=== PATIENT | female | born 1965 | race African-American/Black ===

== ENCOUNTER 2019-06-15 21:25 | Emergency (ER) | payer BC ==
--- OUTSIDE RECORDS SUMMARY | 2019-06-15 21:27 | XMS REPORT ---
:1965 [facility] Address [address] [place] [address] Dr. Rosales [address] [place] [address] Care Team Providers Name Role Phone Unavailable Unavailable Unavailable Problems This patient has no known problems. Allergies, Adverse Reactions, Alerts This patient has no known allergies or adverse reactions. Medications This patient has no known medications.
--- OUTSIDE RECORDS SUMMARY | 2019-06-15 21:27 | XMS REPORT | Summary of Care ---
:1965 Author Organization [facility] Address [address] [place] [id number] Care Team Providers Name Role Phone Sander Beltran MD Primary Care Provider Reason for Visit Reason Comments Refill Request Encounter Details Date Type Department Care Team Description 01/29/2019 Refill [facility] Family Medicine Sander Beltran MD Refill Request - [address] [address] [place] [phone] Allergies Active Allergy Reactions Severity Noted Date Comments Aspirin Other - See comments Medium 11/27/2015 Upsets stomach documented as of this encounter (statuses as of 01/29/2019) Medications Medication Sig Dispensed Refills Start Date End Date Status levothyroxine 75 mcg Take 75 mcg 0 Active tablet by mouth every morning. CELECOXIB 200 mg TAKE 1 30 capsule 0 01/07/2018 Active capsuleIndications: RA CAPSULE BY (rheumatoid arthritis) MOUTH DAILY traZODONE 50 mg Take 1 30 tablet 5 07/27/2018 Active tabletIndications: tablet by Muscle contraction mouth at headache bedtime. PANTOPRAZOLE 40 mg EC TAKE 1 30 tablet 0 01/29/2019 Active tabletIndications: TABLET BY Gastroesophageal MOUTH DAILY reflux disease without esophagitis PANTOPRAZOLE 40 mg EC TAKE 1 30 tablet 0 11/30/2018 Discontinued tabletIndications: TABLET BY 9 Gastroesophageal MOUTH DAILY reflux disease without esophagitis documented as of this encounter (statuses as of 01/29/2019) Active Problems Problem Noted Date Gastroesophageal reflux disease without esophagitis 07/01/2016 RA (rheumatoid arthritis) 12/25/2015 Postoperative hypothyroidism 11/27/2015 documented as of this encounter (statuses as of 01/29/2019) Social History Tobacco Use Types Packs/Day Years Used Date Former Smoker Cigarettes Quit: 11/26/2010 Smokeless Tobacco: Never Used Alcohol Use Drinks/Week oz/Week Comments Yes 1 Shots of liquor 0.6 occ 0 Standard drinks or equivalent Sex Assigned at Date Recorded Not on file Job Start Date Occupation Industry Not on file Not on file Not on file Travel History Travel Start Travel End No recent travel history available. documented as of this encounter Last Filed Vital Signs Not on filedocumented in this encounter Plan of Treatment Health Maintenance Due Date Last Done Comments HEPATITIS C (HCV) SCREEN 1965 DTaP,Tdap,and Td Vaccines (1 1982 - Tdap) Zoster Recombinant Vaccine 2013 (SHINGRIX) (1 of 2) MAMMOGRAM 03/20/2017 03/20/2016 (Previously completed) LUNG CANCER SCREEN: 2018 Recommended for age 55-80 with 30 + pack year history PAP SMEAR 04/18/2018 04/18/2015 (Previously completed) INFLUENZA VACCINE (#1) 2019 COLONOSCOPY 04/17/2026 04/17/2016 (Previously completed) PNEUMOCOCCAL 0-64 YEARS Aged Out No longer eligible based COMBINED SERIES on patient's age to complete this topic documented as of this encounter Results Not on filedocumented in this encounter Visit Diagnoses Diagnosis Gastroesophageal reflux disease without esophagitis Esophageal reflux documented in this encounter Insurance Payer Benefit Plan Subscriber ID Effective Dates Phone Address Type / Group [facility] [employer] [id number] 2017-[place] [phone] [address] PPO/ POS [place] [employer] t 7 [id number] [place] [address] documented as of this encounter
[2019-06-15 22:24] LABS: Basophils % 0.8 % (0-1.3); Hematocrit 41.6 % (36.0-45.0); Lymphocytes % 52.4 % (15.3-44.8); MPV 9.3 fL (7.6-11.3); RBC Red Blood Cell Count 4.74 M/uL (3.86-4.86)
[2019-06-15 22:31] LABS: Protime INR 1.09
[2019-06-15 22:44] LABS: ALT/SGPT 23 U/L (12-78); AST/SGOT 22 U/L (15-37); Albumin 3.7 g/dL (3.4-5.0); Alkaline Phosphatase 83 U/L (45-117); BUN Blood Urea Nitrogen 11 mg/dL (7-18); Bicarbonate 25 mmol/L (21-32); Bilirubin Direct < 0.1 mg/dL (0-0.2); Bilirubin Total 0.4 mg/dL (0.2-1.0); Glucose Level 100 mg/dL (74-106); Magnesium 2.2 mg/dL (1.8-2.4); NT PRO-BNP 9 pg/mL (<125); Potassium 3.8 mmol/L (3.5-5.1); Protein, Total 7.5 g/dL (6.4-8.2); Sodium Level 142 mmol/L (136-145); Troponin (Emerg Dept Use Only) < 0.02 ng/mL (0.0-0.045)
--- NOTE | 2019-06-15 22:54 | EDPHYS ---
Physician Documentation [facility] Name: Akosua Ludwig Age: 54 yrs Sex: Female : 1965 Arrival Date: 06/15/2019 Time: 21:27 Bed 13 Private MD: ED Physician Yeyo Caceres HPI: 06/15 22:26 This 54 yrs old Black Female presents to ER via Ambulatory with complaints of Chest rn Pain. 22:26 The patient or guardian reports chest pain that is located primarily in the anterior rn chest wall. Onset: 3 day(s) ago. The pain does not radiate. The chest pain is described as aching. Duration: The patient or guardian reports multiple episodes, that are intermittent. Modifying factors: The symptoms are alleviated by nothing. the symptoms are aggravated by movement, palpation of area. Severity of pain: At its worst the pain was mild in the emergency department the pain is unchanged. The patient has not experienced similar symptoms in the past. Reports anterior right chest pain, no trauma, reports just started new gym routine on new years, working out upper body, and not sure if that is the cause. No known cardiac problems. No fever/cough/sob. No abd pain. Worse with palpation and movement. . Historical: - Allergies: 21:34 Aspirin; sg - PMHx: 21:34 Rheumatoid Arthritis; sg - PSHx: 21:34 Thyroidectomy; Hysterectomy; Tonsillectomy; sg - Immunization history:: Adult Immunizations up to date. - Social history:: Smoking status: Patient/guardian denies using tobacco. - Ebola Screening: : Patient negative for fever greater than or equal to 101.5 degrees Fahrenheit, and additional compatible Ebola Virus Disease symptoms Patient denies exposure to infectious person Patient denies travel to an Ebola-affected area in the 21 days before illness onset No symptoms or risks identified at this time. - Family history:: not pertinent. - Hospitalizations: : No recent hospitalization is reported. ROS: 22:26 Constitutional: Negative for fever, chills, and weight loss, Eyes: Negative for injury, rn pain, redness, and discharge, Cardiovascular: Negative for palpitations, and edema, Respiratory: Negative for shortness of breath, cough, wheezing, and pleuritic chest pain, Abdomen/GI: Negative for abdominal pain, nausea, vomiting, diarrhea, and constipation, MS/Extremity: Negative for injury and deformity, Skin: Negative for injury, rash, and discoloration, Neuro: Negative for headache, weakness, numbness, tingling, and seizure. Exam: 22:26 Constitutional: This is a well developed, well nourished patient who is awake, alert, rn and in no acute distress. Head/Face: Normocephalic, atraumatic. Eyes: Pupils equal round and reactive to light, extra-ocular motions intact. Lids and lashes normal. Conjunctiva and sclera are non-icteric and not injected. Cornea within normal limits. Periorbital areas with no swelling, redness, or edema. Neck: Trachea midline, no thyromegaly or masses palpated, and no cervical lymphadenopathy. Supple, full range of motion without nuchal rigidity, or vertebral point tenderness. No Meningismus. Chest/axilla: + reproducible right sided chest wall tenderness, no ecchymosis or crepitus. Cardiovascular: Regular rate and rhythm. No pulse deficits. Respiratory: No increased work of breathing, no retractions or nasal flaring. Abdomen/GI: soft, non-tender MS/ Extremity: Pulses equal, no cyanosis. Neurovascular intact. Full, normal range of motion. Equal circumference. Neuro: Awake and alert, GCS 15, oriented to person, place, time, and situation. Cranial nerves II-XII grossly intact. Motor strength 5/5 in all extremities. Sensory grossly intact. Cerebellar exam normal. 22:53 ECG was reviewed by the Attending Physician. rn Vital Signs: 21:36 BP 184 / 104; Pulse 87; Resp 18; Temp 97.8; Pulse Ox 100% on R/A; Pain 6/10; sg 21:36 Weight 83.91 kg; Height 5 ft. (152.40 cm); sg 23:00 BP 150 / 91; Pulse 68; Resp 12 S; Pulse Ox 96% on R/A; jb4 21:36 Body Mass Index 36.13 (83.91 kg, 152.40 cm) MDM: 21:39 Patient medically screened. rn 22:50 Differential diagnosis: chest wall pain, pericarditis, pleurisy, pneumothorax. Data rn reviewed: vital signs, nurses notes, lab test result(s), EKG, radiologic studies, plain films, and as a result, I will discharge patient. 22:51 Test interpretation: by ED physician or midlevel provider: ECG, plain radiologic rn studies, CXR neg for pneumothorax or rib injury. Counseling: I had a detailed discussion with the patient and/or guardian regarding: the historical points, exam findings, and any diagnostic results supporting the discharge/admit diagnosis, lab results, radiology results, the need for outpatient follow up, to return to the emergency department if symptoms worsen or persist or if there are any questions or concerns that arise at home. Special discussion: Based on the patient's history, exam, and Dx evaluation, there is no indication for emergent intervention or inpatient Tx. It is understood by the patient/guardian that if the Sx's persist or worsen they need to return immediately for re-evaluation. I discussed with the patient/guardian in detail that at this point there is no indication for admission to the hospital. It is understood, however, that if the symptoms persist or worsen the patient needs to return immediately for re-evaluation. ED course: Trop neg, ecg normal, most likely chest wall pain given recent new workout, but recommend outpt cardiology and pcp f/u for stress test given chest pain and rheumatoid arthritis. . 06/15 21:47 Order name: Basic Metabolic Panel; Complete Time: 22:47 rn 06/15 21:47 Order name: CBC with Diff; Complete Time: 22:47 rn 06/15 21:47 Order name: LFT's; Complete Time: 22:47 rn 06/15 21:47 Order name: Magnesium; Complete Time: 22:47 rn 06/15 21:47 Order name: NT PRO-BNP; Complete Time: 22:47 rn 06/15 21:47 Order name: PT-INR; Complete Time: 22:47 rn 06/15 21:47 Order name: Troponin (emerg Dept Use Only); Complete Time: 22:47 rn 06/15 21:47 Order name: XRAY Chest (1 view); Complete Time: 23:01 rn 06/15 21:47 Order name: EKG; Complete Time: 21:47 rn 06/15 21:47 Order name: Cardiac monitoring; Complete Time: 21:49 rn 06/15 21:47 Order name: EKG - Nurse/Tech; Complete Time: 21:49 rn 06/15 21:47 Order name: IV Saline Lock; Complete Time: 22:02 06/15 21:47 Order name: Labs collected and sent; Complete Time: 22:02 rn 06/15 21:47 Order name: O2 Per Protocol; Complete Time: :49 rn 06/15 21:47 Order name: O2 Sat Monitoring; Complete Time: 21:49 rn EC:53 Rate is 68 beats/min. Rhythm is regular. QRS Abbott is Normal. CA interval is normal. QRS rn interval is normal. QT interval is normal. No Q waves. T waves are Normal. No ST changes noted. Clinical impression: Normal ECG. Interpreted by me. Reviewed by me. Administered Medications: No medications were administered Disposition: 06/15/19 22:53 Discharged to Home. Impression: Chest pain, unspecified. - Condition is Stable. - Discharge Instructions: Nonspecific Chest Pain, Chest Wall Pain. - Medication Reconciliation Form, Thank You Letter, Antibiotic Education, Prescription Opioid Use form. - Follow up: Private Physician; When: As needed; Reason: Recheck today's complaints, Re-evaluation by your physician. - Problem is new. - Symptoms have improved. Signatures: Dispatcher [employer] EDMS Gopal Robert RN RN Yeyo Caceres MD MD rn Bryson, James, RN RN jb4 Corrections: (The following items were deleted from the chart) 23:18 22:53 06/15/2019 22:53 Discharged to Home. Impression: Chest pain, unspecified. jb4 Condition is Stable. Forms are Medication Reconciliation Form, Thank You Letter, Antibiotic Education, Prescription Opioid Use. Follow up: Private Physician; When: As needed; Reason: Recheck today's complaints, Re-evaluation by your physician. Problem is new. Symptoms have improved. rn
--- NOTE | 2019-06-15 22:54 | ER ---
Nurse's Notes [facility] Name: Akosua Ludwig Age: 54 yrs Sex: Female : 1965 Arrival Date: 06/15/2019 Time: 21:27 Bed 13 Private MD: Diagnosis: Chest pain, unspecified Presentation: 06/15 21:35 Presenting complaint: Patient states: Right sided CP, reports the pain radiates up to sg the back and to the neck, reports the pain has been happening for two weeks but is worsening today, denies n/v/d/fever. Transition of care: patient was not received from another setting of care. Onset of symptoms was June 15, 2019. Risk Assessment: Do you want to hurt yourself or someone else? Patient reports no desire to harm self or others. Initial Sepsis Screen: Does the patient meet any 2 criteria? No. Patient's initial sepsis screen is negative. Does the patient have a suspected source of infection? No. Patient's initial sepsis screen is negative. Care prior to arrival: None. 21:35 Method Of Arrival: Ambulatory sg 21:35 Acuity: RAVINDER 3 sg Historical: - Allergies: 21:34 Aspirin; sg - PMHx: 21:34 Rheumatoid Arthritis; sg - PSHx: 21:34 Thyroidectomy; Hysterectomy; Tonsillectomy; sg - Immunization history:: Adult Immunizations up to date. - Social history:: Smoking status: Patient/guardian denies using tobacco. - Ebola Screening: : Patient negative for fever greater than or equal to 101.5 degrees Fahrenheit, and additional compatible Ebola Virus Disease symptoms Patient denies exposure to infectious person Patient denies travel to an Ebola-affected area in the 21 days before illness onset No symptoms or risks identified at this time. - Family history:: not pertinent. - Hospitalizations: : No recent hospitalization is reported. Screenin:45 Abuse screen: Denies threats or abuse. Nutritional screening: No deficits noted. jb4 Tuberculosis screening: No symptoms or risk factors identified. Fall Risk None identified. Assessment: 21:45 General: Appears in no apparent distress. uncomfortable, Behavior is calm, cooperative, jb4 appropriate for age. Pain: Complains of pain in anterior aspect of right upper chest Pain does not radiate. Pain currently is 5 out of 10 on a pain scale. Quality of pain is described as TIghtness Pain began 2-3 days ago. Is intermittent. Neuro: Level of Consciousness is awake, alert, obeys commands, Oriented to person, place, time, situation. Cardiovascular: Patient's skin is warm and dry. Rhythm is sinus rhythm. Respiratory: Airway is patent Respiratory effort is even, unlabored, Respiratory pattern is regular, symmetrical. GI: No signs and/or symptoms were reported involving the gastrointestinal system. : No signs and/or symptoms were reported regarding the genitourinary system. EENT: No signs and/or symptoms were reported regarding the EENT system. Derm: Skin is intact, Skin is pink, warm \T\ dry. Musculoskeletal: Circulation, motion, and sensation intact. Range of motion: intact in all extremities. 22:44 Reassessment: Patient appears in no apparent distress at this time. Patient and/or jb4 family updated on plan of care and expected duration. Pain level reassessed. Patient is alert, oriented x 3, equal unlabored respirations, skin warm/dry/pink. Vital Signs: 21:36 BP 184 / 104; Pulse 87; Resp 18; Temp 97.8; Pulse Ox 100% on R/A; Pain 6/10; sg 21:36 Weight 83.91 kg; Height 5 ft. (152.40 cm); sg 23:00 BP 150 / 91; Pulse 68; Resp 12 S; Pulse Ox 96% on R/A; jb4 21:36 Body Mass Index 36.13 (83.91 kg, 152.40 cm) ED Course: 21:27 Patient arrived in ED. jg7 21:29 Arm band placed on. sg 21:35 Triage completed. sg 21:37 Sander Gauthier, RN is Primary Nurse. jb4 21:38 Yeyo Caceres MD is Attending Physician. rn 21:45 Patient has correct armband on for positive identification. Placed in gown. Bed in low jb4 position. Call light in reach. Side rails up X 1. security monitor on. Pulse ox on. NIBP on. 21:45 Initial lab(s) drawn, by ED staff, sent to lab. Inserted saline lock: 22 gauge in left jb4 antecubital area, using aseptic technique. Blood collected. Patient maintains SpO2 saturation greater than 95% on room air. 22:10 XRAY Chest (1 view) In Process Unspecified. EDMS 23:00 No provider procedures requiring assistance completed. IV discontinued, intact, jb4 bleeding controlled, No redness/swelling at site. Pressure dressing applied. Administered Medications: No medications were administered Outcome: 22:53 Discharge ordered by . rn 23:00 Discharged to home ambulatory, with family. jb4 23:00 Condition: stable 23:00 Discharge instructions given to patient, family, Instructed on discharge instructions, follow up and referral plans. Demonstrated understanding of instructions, follow-up care. 23:18 Patient left the ED. jb4 Signatures: Dispatcher [employer] EDMS Gopal Robert, RN RN Yeyo De MD MD rn Bryson, James, RN RN jb4 Yumiko King jg7
--- NOTE | 2019-06-15 22:54 | RAD REPORT ---
EXAM DESCRIPTION: RAD - Chest Single View - 06/15/2019 10:13 pm CLINICAL HISTORY: CHEST PAIN Chest pain. COMPARISON: Chest Single View dated 03/10/2017; ABDOMEN 1 VIEW KUB dated 01/06/2015; ABDOMEN 1 VIEW KU B dated 12/13/2014; CHEST SINGLE VIEW dated 03/31/2012 FINDINGS: Portable technique limits examination quality. The lungs are grossly clear. The heart is normal in size. No displaced fractures. IMPRESSION: No acute intrathoracic process suspected.
[2019-06-15 23:39] VITALS: BP 184/104; TEMP 97.8; O2SAT 100
--- NOTE | 2019-06-16 14:40 | EKG ---
Test Date: 2019-06-15 Test Time: 21:43:28 Video Effects Editor: ALIA MEASUREMENT RESULTS: Intervals: Rate: 68 DE: 154 QRSD: 84 QT: 394 QTc: 418 [place]: P: 69 DE: 154 QRS: 30 T: 34 INTERPRETIVE STATEMENTS: Normal sinus rhythm Normal ECG Compared to ECG 03/10/2017 19:10:40 Atrial premature complex(es) no longer present Electronically Signed On 06-16-19 14:38:36 LEARNING STRATEGIST by Krunal Salazar
== END 2019-06-15 23:18 | disposition home or self-care (01) ==
LOC: ER 21:25
DX: R07.9 Chest pain, unspecified (principal)
CPT/HCPCS: 36415; 71045; 80048; 80076; 83735; 83880; 84484; 85025; 85610; 93005; 99285

== ENCOUNTER 2020-06-06 05:20 | Observation (INO) | payer BC ==
--- OUTSIDE RECORDS SUMMARY | 2020-06-06 05:21 | XMS REPORT | Summary of Care ---
:1965 Author Organization [facility] Address [address] [place] [address] Care Team Providers Name Role Phone Franklin Beltran MD Primary Care Provider Reason for Visit Reason Comments LAB Exposure Encounter Details Date Type Department Care Team Description 05/18/2020 Laboratory Only [facility] Family JhonatanShari baker, PA [address] [place] [address] [facility] [place] [address] Exposure to Medicine - [facility], [facility] Fam Pob I SARS-associated [address] [place] [address] [address] ([address] Dx) [place] [address] Allergies Active Allergy Reactions Severity Noted Date Comments Aspirin Other - See comments Medium 11/27/2015 Upsets stomach documented as of this encounter (statuses as of 05/18/2020) Medications Medication Sig Dispensed Refills Start Date End Date Status levothyroxine 75 mcg Take 75 mcg by 0 Active tablet mouth every morning. simethicone (GAS-X EXTRA Take 1 tablet 30 tablet 1 10/28/2019 Active STRENGTH) 125 mg by mouth every chewable 6 (six) hours tabletIndications: as needed for Abdominal pain, Gas. unspecified abdominal location, Excessive gas ondansetron (ZOFRAN) 4 Take 1 tablet 20 tablet 0 10/28/2019 Active mg tabletIndications: by mouth every Nausea 8 (eight) hours as needed (Nausea). PANTOPRAZOLE 40 mg EC TAKE 1 TABLET 30 tablet 5 01/25/2020 Active tabletIndications: BY MOUTH DAILY Gastroesophageal reflux disease without esophagitis CELECOXIB 200 mg TAKE 1 CAPSULE 30 capsule 0 02/28/2020 Active capsuleIndications: RA BY MOUTH DAILY (rheumatoid arthritis) documented as of this encounter (statuses as of 05/18/2020) Active Problems Problem Noted Date Abdominal pain, unspecified abdominal location 020 Excessive gas 10/28/2019 Nausea 10/28/2019 Midline low back pain without sciatica, unspecified ch ronicity 10/28/2019 Lactose intolerance 10/28/2019 Hypothyroidism 08/23/2019 Osteoporosis 06/09/2017 Gastroesophageal reflux disease without esophagitis RA (rheumatoid arthritis) 12/25/2015 Postoperative hypothyroidism 11/27/2015 Tubular adenoma of colon 11/08/2015 Overview: Overview: Pathology reviewed from the colonoscopy I performed in October 2015 2 tubular adenomas removed Results released to patient Next exam due in 5 years Follow up with referring team MIKA CHRISTIANSON MD Gastroenterology, Hepatology & Nutrition Mixed connective tissue disease 06/09/2008 documented as of this encounter (statuses as of 05/18/2020) Social History Tobacco Use Types Packs/Day Years Used Date Former Smoker Cigarettes Quit: 11/27/19 11 Smokeless Tobacco: Never Used Alcohol Use Drinks/Week oz/Week Comments Yes 1 Shots of liquor 1.0 occ 0 Standard drinks or equivalent Sex Assigned at Date Recorded Not on file COVID-19 Exposure Response Date Recorded In the last month, have you been in contact with Yes 05/18/2020 10:16 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 documented as of this encounter Last Filed Vital Signs Not on filedocumented in this encounter Nursing Notes Primitivo Ramirez MA - 05/18/2020 10:20 AM CSTPatricnicole Ludwig is a 55 year old female here for COVID Screening with a Nasopharyngeal Swab All droplet and contact precautions taken with appropriate PPE worn while interacting with patient. ? Goggles ? N95 Mask ? Gloves ? Gown RR 12 Pulse 77 Ox 99% Patient educated on plan of care for visit, swabbing technique, risks and benefits of test and length of time to receive results. Verbal consent obtained to perform test. CDC Fact Sheet for Patients nCoV Diagnostic Panel dated 08/22/2019 and Factsheet What to Do if Sick with COVID 19 08/02/19 provided. Bilate nares swabbed during COVID19 nasopharyngeal swab. Patient swabbed per appropriate nasopharyngeal technique, and patient tolerated well. Patient was discharged from the testing clinic in stable condition. 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 documented in this encounter Plan of Treatment Date Type Specialty Care Team Description 09/19/2020 Paper Stacker Visit Endocrinology Diabetes & Lb, Jaleesa, RD Metabolism [address] [place] [address] [phone] Name Type Priority Associated Diagnoses Order S chedule COVID-19 (MOLECULAR LAB Routine Exposure to Expected : 05/18/2020, TESTING SARS-associated Expires: 021 NUCLEIC ACID coronavirus AMPLIFICATION) Health Maintenance Due Date Last Done Comments HEPATITIS C (HCV) SCREEN 1965 Depression Screening 1975 DTaP,Tdap,and Td Vaccines ( - 1982 Tdap) COLON CANCER SCREENING ANNUAL 2013 FIT/FOBT COLON CANCER SCREENING FIT DNA 2013 EVERY 3 YEARS COLON CANCER SCREENING 2013 SIGMOIDOSCOPY EVERY 5 YEARS Zoster Recombinant Vaccine 2013 (SHINGRIX) (1 of 2) Breast Cancer Screening 03/20/2017 03/20/2016 (MAMMOGRAM) (Previously completed) LUNG CANCER SCREEN: 2018 Recommended for age 55-80 with 30 + pack year history PAP SMEAR 04/18/2018 04/18/2015 (Previously completed) INFLUENZA VACCINE (#1) 2020 COLONOSCOPY 04/17/2026 04/17/2016 (Previously completed) Colorectal Cancer Screening 04/17/2026 PNEUMOCOCCAL 0-64 YEARS Aged Out No longe r eligible based COMBINED SERIES on patient's age to complete this to pic documented as of this encounter Results Not on filedocumented in this encounter Visit Diagnoses Diagnosis Exposure to SARS-associated coronavirus - Primary documented in this encounter Additional Health Concerns Infection Onset Date Last Indicated Resolved Time COVID-19 Rule Out 05/18/2020 05/18/2020 documented as of this encounter Insurance Payer Benefit Plan Subscriber ID Effective Dates Phone Address Type / Group [facility] [place] [id number] [facility]-[place] [phone] [address] PPO/POS [place] [employer] t 7 [id number] [place] [address] documented as of this encounter
--- OUTSIDE RECORDS SUMMARY | 2020-06-06 05:21 | XMS REPORT | Summary of Care ---
:1965 Author Organization [facility] Address [address] [place] [address] Care Team Providers Name Role Phone Franklni Beltran MD Primary Care Provider Reason for Visit Reason Comments GI Problem Celiac Disease (Routine) Status Reason Specialty Diagnoses / Referred By Referred To Procedures Contact Contact Authorized Dietary and Diagnoses Abdominal pain, unspecified abdominal location Excessive gas Lb Win Yusra, Nutritional Service Procedures CONSULT/REFERRAL NUTRITION MD Elia RD [address] [place] [address] [address] [place], [place] [address] Phone: Fax: Encounter Details Date Type Department Care Team Description 03/21/2020 Comparison Shopper Visit [facility] Jaleesa Asher, Celiac dis ease (Primary Dx); Endocrinology- RD Gastroesophageal reflux disease without esophagitis [address], [address] [place] [id number] Allergies Active Allergy Reactions Severity Noted Date Comments Aspirin Other - See comments Medium 11/27/2015 Upsets stomach documented as of this encounter (statuses as of 03/21/2020) Medications Medication Sig Dispensed Refills Start Date [...] as of this encounter (statuses as of 03/21/2020) Active Problems Problem Noted Date Abdominal pain, [...] as of this encounter (statuses as of 03/21/2020) Social History Tobacco Use Types Packs/Day Years Used Date Former Smoker Cigarettes Quit: 11/27/19 11 Smokeless Tobacco: Never Used Alcohol Use Drinks/Week oz/Week Comments Yes 1 Shots of liquor 1.0 occ 0 Standard drinks or equivalent Sex Assigned at Date Recorded Not on file COVID-19 Exposure Response Date Recorded In the last month, have you been in contact with No / Unsure 03/21/2020 9:59 AM CDT someone who was confirmed or suspected to have Coronavirus / COVID-19? documented as of this encounter Last Filed Vital Signs Vital Sign Reading Time Taken Comments Blood Pressure - - Pulse - - Temperature - - Respiratory Rate - - Oxygen Saturation - - Inhaled Oxygen Concentration - - Weight 80.7 kg (178 lb) 03/21/2020 10:07 AM CDT Height - - Body Mass Index 34.76 10/28/2019 3:28 PM CDT documented in this encounter Progress Notes Jaleesa Asher, RD - 03/21/2020 10:00 AM CDT Medical Nutrition Therapy - [id number] Referred by: Elia Win MD Problem: Celiac disease Date: 03/21/20 HPI This is an initial nutritional assessment for Akosua Ludwig is a 54 year old female. Patient is lactose intolerant, celiac disease. Patient has not done anything to limit gluten in diet and cross contamination at home. On 01/17, patient had tummy tuck surgery. 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 Retired a few years ago fromfull time job w/[employer]. Primary shopping and/or cooking responsibilities in the home rest on the patient and her . Diet history: Patient has been trying to eat at home more often. Previously was eating out after first diagnosis of celiac's disease. Will eat fast food often. Patient has made changes to how she eats,including label-reading, meal preparation, and number of times she eats out. She demonstrated ability to realize foods that contain gluten and has the food in her refrigerator into gluten andnon-gluten areas. She has additionally kitchen utensils to avoid cross-contamination. Per patient, her symptoms have substantially improved after making all the changes to her diet. Breakfast: cream of wheat w/sugar Honey-nut cheerios, banana, lactose-free milk Beverages: almond milk, coffee Water: 80+ fl oz Activity: Walks 3-4x/week 60 mins. Due to surgery, patient has not been able to exercise like normal. Wt Readings from Last 6 Encounters: 03/21/20 178 lb (80.7 kg) 12/14/19 188 lb (85.3 kg) 12/02/19 190 lb (86.2 kg) 10/28/19 186 lb (84.4 kg) 06/16/19 191 lb (86.6 kg) 09/02/18 191 lb (86.6 kg) CHOL (mg/dL) Date Value 07/29/2018 154 HDL (mg/dL) Date Value 07/29/2018 48 (L) LDL CHOL (mg/dL) Date Value 07/29/2018 76 TRIG (mg/dL) Date Value 07/29/2018 152 Current Outpatient Medications Medication Sig Dispense Refill CELECOXIB 200 mg capsule TAKE 1 CAPSULE BY MOUTH DAILY 30 capsule 0 PANTOPRAZOLE 40 mg EC tablet TAKE 1 TABLET BY MOUTH DAILY 30 tablet 5 ondansetron (ZOFRAN) 4 mg tablet Take 1 tablet by mouth every 8 (eight) hours as needed (Nausea). 20 tablet 0 simethicone (GAS-X EXTRA STRENGTH) 125 mg chewable tablet Take 1 tablet by mouth every 6 (six) hours as needed for Gas. 30 tablet 1 levothyroxine 75 mcg tablet Take 75 mcg by mouth every morning. No current facility-administered medications for this visit. NUTRITIONAL DIAGNOSIS NB-1.1 Food and nutrition related knowledge deficit . NUTRITIONAL INTERVENTION Discussed with the patient celiac disease, nutrition and label reading, portion sizes, healthy food choices, importance of hydration, protein and supplements, behavior modification and exercise. Provided patient with written, oral and visual education in celiac disease. Counseled patient on how to eat a more balanced diet, improving mindful eating and how to avoid cross contamination. All patient questions were answered. Patient verbalized understanding. Goals/Behavior modification chosen to practice for next visit: 1. Eliminate all gluten from diet and from home (cross contamination). - Continued. 2. Eliminate all sugar from diet. - Continued. MONITORING/EVALUATION Dietitian to follow-up in 6 month/s or as necessary. Jaleesa Asher RD, LD, CDE Dietitian/Base Ply Hand [address] [place] [address] This visit involved counseling that comprised 30 minutes total time with the patient. ang-beatris documented in this encounter Plan of Treatment Date Type Specialty Care Team Description 09/19/2020 Comparison Shopper Visit Endocrinology Diabetes & Jaleesa Asher RD Metabolism [address] [place] [address] Health Maintenance Due Date Last Done Comments HEPATITIS C (HCV) SCREEN 1965 Depression Screening 1975 DTaP,Tdap,and Td Vaccines (1 - 1982 Tdap) COLON CANCER SCREENING ANNUAL [...] filedocumented in this encounter Visit Diagnoses Diagnosis Celiac disease - Primary Gastroesophageal reflux disease without esophagitis Esophageal reflux documented in this encounter Insurance Payer Benefit Plan Subscriber ID Effective Dates Phone Address Type / Group [facility] [employer] [id number] [place] [phone] [address] PPO/POS [place] [employer] t [id number] [place] [address] documented as of this encounter
--- OUTSIDE RECORDS SUMMARY | 2020-06-06 05:21 | XMS REPORT | Summary of Care ---
:1965 Author Organization [facility] - Health Address [address] [place] [address] Care Team Providers Name Role Phone Franklin Beltran MD Primary Care Provider Encounter Details Date Type Department Care Team Description 05/18/2020 Letter (Out) [facility] Dianwoba Message s Doctor Unassigned, No [address] [facility] [place] [address] [address] [facility] [phone] [place] [address] Allergies Active Allergy Reactions Severity Noted Date [...] Assigned at Date Recorded Not on file documented as of this encounter Last Filed Vital Signs Not on filedocumented in this encounter Plan of Treatment Date Type Specialty Care Team Description 05/18/2020 Laboratory Only Family Medicine Yara Israel , PA [address] [place] [address] [place] [address] Exposure to Lab, Adc Fam Pob I SARS-associated coronavirus (Primary Dx) 09/19/2020 Psychological Anthropologist Visit Endocrinology Diabetes Ankush Asher RD & Metabolism [address] [place] [address] [phone] Health Maintenance Due Date Last Done Comments [...] on patient's age to complete this to [facility] documented as of this encounter Results Not on filedocumented in this encounter Insurance Payer Benefit Plan Subscriber ID Effective Dates Phone Address Type / Group [facility] [id number] [place] [phone] [address] PPO/POS [place] [employer] t [id number] documented as of this encounter
--- OUTSIDE RECORDS SUMMARY | 2020-06-06 05:22 | XMS REPORT | Continuity of Care Document ---
:1965 Author Organization [facility] t Address [address] [place] [address] Care Team Providers Name Role Phone Dat HIGH, [place] Primary Care Physician Lab, Fam Pob I Attending Clinician Unavailable Doctor Unassigned, Name Attending Clinician Unavailable Lb RD Attending Clinician Franklin Beltran MD Attending Clinician Problems Condition Condition Condition Status Onset Resolution Last Treating Co mments Source Name Details Category Date Date Treatment Clinician Date Osteoporos Osteoporos Disease Active M D is is 06-09 Anderso 00:00: n 00 Tubular Tubular Disease Active Overview: adenoma of adenoma of 11-07 Pathology Anderso colon colon 00:00: reviewed n 00 from the colonosco py I performed in October tubular adenomas removedRe sults released to patient Next exam due in 5 yearsFoll ow up with referring teamSMarge ACOSTA nterology , Hepatolog y & Nutrition Mixed Mixed Disease Active connective connective 06-09 An derso tissue tissue 00:00: n disease disease 00 Hypothyroi Hypothyroi Disease Active M D dism dism Anderso n Allergies, Adverse Reactions, Alerts This patient has no known allergies or adverse reactions. Family History Family Member Diagnosis Comments Start Date Stop Date Source Natural father Lung cancer MD Wisdom on Maternal grandmother -Breast cancer MD Cage Natural mother Uterine cancer Social History Social Habit Start Date Stop Date Quantity Comments Source Sex Assigned At MD Wisdom on Tobacco use and 2019-02-17 2019-02-17 Never used MD Wisdom on exposure 00:00:00 00:00:00 Alcohol intake 2019-02-17 2019-02-17 Current drinker MD Nguyen nichole 00:00:00 00:00:00 of alcohol (finding) Alcohol Comment 2015-11-03 2015-11-03 per month MD Wisdom on 00:00:00 00:00:00 Smoking Status Start Date Stop Date Source Never smoker MD Cage Medications Ordered Filled Start Stop Current Ordering Indication Dosage Frequency Signature Comments Components Source Medication Medication Date Date Medication? Clinician (SIG) Name Name cholecalcif Yes 1000U Take 1,000 MD desmond, 9-11 Units by Anderso vitamin D3, 14:33: mouth n 1,000 units 23 daily. tablet levothyroxi Yes 100ug Take 100 M D ne 9-11 mcg by Anderso (SYNTHROID, 14:24: mouth n LEVOTHROID) 18 daily. 100 mcg tablet B-complex Yes 1{tbl} Take 1 MD with 9-11 tablet by Anderso vitamin C 14:24: mouth n tablet 18 daily. MAGNESIUM Yes 250mg Take 250 MD AMINO ACID 9-11 mg by Anderso CHELATE 14:24: mouth n ORAL 18 daily. ibuprofen Yes 800mg Take 800 MD (ADVIL,MOTR 9-11 mg by Anderso IN) 800 mg 14:24: mouth as n tablet 18 needed. turmeric Yes by (CURCUMIN 9-11 miscellane Jer rso MISC) 14:24: ous route n 18 daily. pantoprazol 2015-06 Yes 40mg Take 40 mg MD e 2-04 by mouth Anderso (PROTONIX) 00:00: daily. n 40 mg EC 00 tablet celecoxib 2015-06 Yes 200mg Take 200 MD (CeleBREX) 1-23 mg by Anderso 200 mg 00:00: mouth n capsule 00 daily. Procedures This patient has no known procedures. Encounters Start End Encounter Admission Attending Care Care Encounter Source Date/Time Date/Time Type Type Clinicians Facility Department ID 2020-05-18 2020-05-18 Laboratory Lab, [facility] [id number] 10:15:05 10:35:05 Only Fam Pob I Health [id number] Gregory [id number] Professio [phone] [place] [address] [address] 2020-05-18 2020-05-18 Letter Doctor CARLIE [id number] 00:00:00 00:00:00 (Out) Unassigned, ROBBI [id number] [facility] [id number] 2020-03-21 2020-03-21 Fabrication Lead [facility] [id number] 10:01:54 10:42:37 Visit Jaleesa Gregory [id number] Radha [id number] Professio [phone] [address] 2020-02-27 2020-02-[facility] [id number] 00:00:00 00:00:00 [facility] [id number] Edward Gregory [id number] Professio [phone] [place] [address] [address] 2020-01-28 2020-01-28 [facility] [id number] 00:00:00 00:00:00 [facility] [id number] Edward [place] [id number] Professio [phone] [place] [address] [address] 2020-01-25 2020-01-25 [facility] [id number] 00:00:00 00:00:00 [facility] [id number] Edward [place] [id number] Professio [phone] [place] [address] [address] 2019-12-25 2019-12-25 [facility] [id number] 00:00:00 00:00:00 [facility] [id number] Edward [place] [id number] [place]les [phone] [place] [address] 2019-12-21 2019-12-21 [facility] [id number] 11:22:00 23:59:00 Encounter Sander Phillips [id number] Derekronaldo Radha [id number] [place] [id number] 2019-12-21 2019-12-21 Orders Doctor CARLIE [id number] 00:00:00 00:00:00 Only Unassigned, ROBBI [id number] [place] [facility] [id number] 2019-12-14 2019-12-14 [facility] [id number] 10:24:43 10:39:43 Visit Sander Phillips [id number] ronaldo Garcia [id number] [facility] [phone] [place] [address] Building 2019-11-10 2019-11-10 Orders Doctor CARLIE [id number] 00:00:00 00:00:00 Only Unassigned, ROBBI [id number] [place] [id number] Results This patient has no known results.
[2020-06-06 05:58] LABS: Protime INR 1.09
[2020-06-06 05:59] LABS: Basophils % 0.7 % (0-1.3); Hematocrit 40.9 % (36.0-45.0); Lymphocytes % 42.1 % (15.3-44.8); MPV 8.4 fL (7.6-11.3); RBC Red Blood Cell Count 4.89 M/uL (3.86-4.86)
[2020-06-06] MEDS ORDERED: MORPHINE 2 MG/ML SYR ONE ×2 (06:00→22:56)
[2020-06-06] MEDS ORDERED: ONDANSETRON 4 MG/2 ML VIAL ONE (06:00)
[2020-06-06] MEDS ORDERED: METOPROLOL TAR 50 MG TAB ONE (06:00)
[2020-06-06] MEDS ORDERED: NA CHLORIDE 0.9% 1,000 ML ONE (06:01)
[2020-06-06] MEDS ORDERED: METOPROLOL TARTRATE 5 MG/5 ML INJ IV ONE (06:01)
[2020-06-06] MEDS ORDERED: ENOXAPARIN 80 MG/0.8 ML SQ ONE (06:01)
--- NOTE | 2020-06-06 06:35 | ER ---
Nurse's Notes [facility] Name: Akosua Ludwig Age: 55 yrs Sex: Female : 1965 Arrival Date: 06/06/2020 Time: 05:20 Bed 27 Private MD: Diagnosis: Other chest pain Presentation: 06/06 05:33 Chief complaint: Patient states: chest pain started two days ago, Friday night felt rv heaviness on my right chest, took some Mucinex, Greenish phlegm came out the next morning, pain moves to right shoulder, pain is on and off, then last night the pain moved across my chest to the left side, then radiates to left shoulder, it is like chest pressure. right now it is like 3/10, but last night it felt like 7/10. denies fever, SOB, N/V. Coronavirus screen: Client denies travel out of the [place] in the last 14 days. Ebola Screen: No symptoms or risks identified at this time. Initial Sepsis Screen: Does the patient meet any 2 criteria? No. Patient's initial sepsis screen is negative. Does the patient have a suspected source of infection? No. Patient's initial sepsis screen is negative. Risk Assessment: Do you want to hurt yourself or someone else? Patient reports no desire to harm self or others. Onset of symptoms was June 04, 2020. 05:33 Method Of Arrival: Ambulatory 05:33 Acuity: RAVINDER 3 rv Triage Assessment: 05:40 General: Appears comfortable, Behavior is calm, cooperative. Pain: Complains of pain in rv chest. EENT: No signs and/or symptoms were reported regarding the EENT system. Neuro: Level of Consciousness is awake, alert, obeys commands, Oriented to person, place, time, situation. Cardiovascular: Patient's skin is warm and dry. Rhythm is regular. Respiratory: Airway is patent. Derm: Skin is intact. Historical: - Allergies: 05:23 Aspirin; sg - PMHx: 05:23 Rheumatoid Arthritis; sg 09:30 Kidney stones; sv - PSHx: 05:23 Thyroidectomy; Hysterectomy; Tonsillectomy; sg 09:30 Tubal ligation; Tummy tuck; sv - Immunization history:: Adult Immunizations up to date. - Social history:: Smoking status: Patient denies any tobacco usage or history of. Screenin:41 Abuse screen: Denies threats or abuse. Denies injuries from another. Nutritional rv screening: No deficits noted. Tuberculosis screening: No symptoms or risk factors identified. Fall Risk None identified. Assessment: 05:41 Pain: Pain radiates to right arm and left arm Pain began 2-3 days ago. rv 05:58 Reassessment: Patient appears in no apparent distress at this time. Patient is alert, rr5 oriented x 3, equal unlabored respirations, skin warm/dry/pink. refused for morphine and zofran medication for now. I feel fine right now as stated by patient. 05:58 Reassessment: Hr of 59bpm, Lopressor medication hold temporarily. rr5 06:20 Reassessment: Patient appears in no apparent distress at this time. complaint of chest rr5 pain and agreed to received morphine. 07:58 Reassessment: Dr Gar at the bedside. sv Vital Signs: 05:33 BP 183 / 112; Pulse 78; Resp 17; Temp 98; Pulse Ox 99% ; Weight 77.11 kg; Pain 3/10; rv 05:59 BP 161 / 96; Pulse 59; Resp 16; Pulse Ox 98% ; Pain 2/10; rr5 06:27 BP 134 / 90; Pulse 63; Resp 18; Pulse Ox 98% on R/A; rr5 07:25 BP 133 / 93; Pulse 66; Resp 19; Pulse Ox 98% ; sv 08:13 BP 150 / 90; Pulse 66 MON; Resp 14; Pulse Ox 98% on R/A; sv 09:30 Height 5 ft. 0 in. (152.40 cm); sv 09:30 Body Mass Index 33.20 (77.11 kg, 152.40 cm) sv 08:13 Sinus Rhythm sv ED Course: 05:20 Patient arrived in ED. cl3 05:23 Rickie Cage MD is Attending Physician. nathan 05:23 Arm band placed on. sg 05:32 Hema Swartz RN is Primary Nurse. rv 05:40 Triage completed. rv 05:40 Initial lab(s) drawn, by ED staff, sent to lab. Inserted saline lock: 20 gauge in right rv forearm, using aseptic technique. Blood collected. Patient maintains SpO2 saturation greater than 95% on room air. 05:41 Patient has correct armband on for positive identification. Placed in gown. Bed in low rv position. Call light in reach. Side rails up X 1. bus monitor on. Pulse ox on. NIBP on. 06:34 Gelacio Gar is Hospitalizing Provider. nathan 07:10 XRAY Chest (1 view) In Process Unspecified. EDMS 07:41 Basic Metabolic Panel Sent. sv 07:41 CBC with Diff Sent. sv 07:49 CT Chest For PE Angio In Process Unspecified. EDMS 07:51 Primary Nurse role handed off by Hema Swartz RN sv 07:51 Jennifer Boucher, KAYE is Primary Nurse. sv 07:52 Patient moved back from CT. sv 08:13 No provider procedures requiring assistance completed. Patient admitted, IV remains in sv place. intact. 19:07 Primary Nurse role handed off by Jennifer Boucher RN sv 06/07 00:05 Efe Kitchen, KAYE is Primary Nurse. mg2 00:20 COVID swab sent to lab. mg2 Administered Medications: 06/06 05:57 Drug: NS 0.9% 1000 ml Route: IV; Rate: 125 ml/hr; Site: right forearm; rr5 05:57 Drug: Lovenox 1 mg/kg Route: Sub-Q; Site: right upper arm; rr5 06:41 Follow up: Response: No adverse reaction rr5 06:20 Drug: morphine 2 mg {Note: rass 0.} Route: IVP; Site: right forearm; rv 07:05 Follow up: Response: No adverse reaction; RASS: Alert and Calm (0) rr5 06:20 Drug: Zofran (Ondansetron) 4 mg Route: IVP; Site: right forearm; rv 06:41 Follow up: Response: No adverse reaction rr5 06:36 Not Given (Duplicate Order): Lopressor (metoprolol TARTRATE) 50 mg PO once nathan 06:36 Not Given (Duplicate Order): Lopressor 5 mg IVP once; Hold for SBP <100 or HR <60. nathan 06:40 Drug: Lopressor 25 mg Route: PO; rr5 08:11 Follow up: Response: No adverse reaction sv 08:00 Drug: Pepcid 20 mg Route: IVP; Site: right forearm; sv 08:10 Follow up: Response: No adverse reaction sv Outcome: 06:35 Decision to Hospitalize by Provider. nathan 08:14 Admitted to ER Hold. Please see [facility] for further documentation. sv 08:14 Condition: stable 08:14 Instructed on the need for admit. 06/07 10:26 Discharge ordered by . em1 10:26 Patient left the ED. em1 Signatures: Dispatcher [employer] EDJennifer Nieves RN RN Gopal Robert RN RN sg Anderson, Corey, MD MD cha Martinez, Eric em1 Efe Kitchen RN RN [facility] Hema Swartz RN KAYE Colt Ochoa RN RN rr5 Remington Gastelum cl3 Corrections: (The following items were deleted from the chart) 06/06 08:10 08:00 Pepcid 20 mg [facility]P [facility]
--- NOTE | 2020-06-06 06:36 | EDPHYS ---
Physician Documentation [facility] Name: Akosua Ludwig Age: 55 yrs Sex: Female : 1965 Arrival Date: 06/06/2020 Time: 05:20 Bed 27 Private MD: ED Physician Rickie Cage HPI: 06/06 05:39 This 55 yrs old Black Female presents to ER via Unassigned with complaints of Chest nathan Pain. 05:39 The patient or guardian reports chest pain that is located primarily in the anterior nathan chest wall, bilaterally. Onset: last night. The pain radiates to chest. Associated signs and symptoms: The patient has no apparent associated signs or symptoms. The chest pain is described as dull, a pressure. Duration: The patient or guardian reports a single episode, that is still ongoing. Modifying factors: The symptoms are alleviated by nothing. the symptoms are aggravated by nothing. Severity of pain: At its worst the pain was mild in the emergency department the pain is unchanged. The patient has not experienced similar symptoms in the past. Historical: - Allergies: 05:23 Aspirin; sg - PMHx: 05:23 Rheumatoid Arthritis; sg 09:30 Kidney stones; sv - PSHx: 05:23 Thyroidectomy; Hysterectomy; Tonsillectomy; sg 09:30 Tubal ligation; Tummy tuck; sv - Immunization history:: Adult Immunizations up to date. - Social history:: Smoking status: Patient denies any tobacco usage or history of. ROS: 05:40 Constitutional: Negative for fever, chills, and weight loss, Eyes: Negative for injury, nathan pain, redness, and discharge, ENT: Negative for injury, pain, and discharge, Neck: Negative for injury, pain, and swelling, Respiratory: Negative for shortness of breath, cough, wheezing, and pleuritic chest pain, Abdomen/GI: Negative for abdominal pain, nausea, vomiting, diarrhea, and constipation, Back: Negative for injury and pain, : Negative for injury, bleeding, discharge, and swelling, MS/Extremity: Negative for injury and deformity, Skin: Negative for injury, rash, and discoloration, Neuro: Negative for headache, weakness, numbness, tingling, and seizure, Psych: Negative for depression, anxiety, suicide ideation, homicidal ideation, and hallucinations, Allergy/Immunology: Negative for hives, rash, and allergies, Endocrine: Negative for neck swelling, polydipsia, polyuria, polyphagia, and marked weight changes, Hematologic/Lymphatic: Negative for swollen nodes, abnormal bleeding, and unusual bruising. 05:40 Cardiovascular: Positive for chest pain, of the chest. 05:40 MS/extremity: Negative for acute changes. Exam: 05:40 Constitutional: This is a well developed, well nourished patient who is awake, alert, nathan and in no acute distress. Head/Face: Normocephalic, atraumatic. Eyes: Pupils equal round and reactive to light, extra-ocular motions intact. Lids and lashes normal. Conjunctiva and sclera are non-icteric and not injected. Cornea within normal limits. Periorbital areas with no swelling, redness, or edema. ENT: Nares patent. No nasal discharge, no septal abnormalities noted. Tympanic membranes are normal and external auditory canals are clear. Oropharynx with no redness, swelling, or masses, exudates, or evidence of obstruction, uvula midline. Mucous membranes moist. Neck: Trachea midline, no thyromegaly or masses palpated, and no cervical lymphadenopathy. Supple, full range of motion without nuchal rigidity, or vertebral point tenderness. No Meningismus. Chest/axilla: Normal chest wall appearance and motion. Nontender with no deformity. No lesions are appreciated. Cardiovascular: Regular rate and rhythm with a normal S1 and S2. No gallops, murmurs, or rubs. Normal PMI, no JVD. No pulse deficits. Respiratory: Lungs have equal breath sounds bilaterally, clear to auscultation and percussion. No rales, rhonchi or wheezes noted. No increased work of breathing, no retractions or nasal flaring. Abdomen/GI: Soft, non-tender, with normal bowel sounds. No distension or tympany. No guarding or rebound. No evidence of tenderness throughout. Back: No spinal tenderness. No costovertebral tenderness. Full range of motion. Female : Normal external genitalia. Skin: Warm, dry with normal turgor. Normal color with no rashes, no lesions, and no evidence of cellulitis. MS/ Extremity: Pulses equal, no cyanosis. Neurovascular intact. Full, normal range of motion. Neuro: Awake and alert, GCS 15, oriented to person, place, time, and situation. Cranial nerves II-XII grossly intact. Motor strength 5/5 in all extremities. Sensory grossly intact. Cerebellar exam normal. Normal gait. Psych: Awake, alert, with orientation to person, place and time. Behavior, mood, and affect are within normal limits. 05:40 Musculoskeletal/extremity: DVT Exam: No signs of deep vein thrombosis. no pain, no swelling, no tenderness, negative Homans' sign noted on exam, no appreciated bluish discoloration, no erythema, no increased warmth. 05:46 ECG was reviewed by the Attending Physician. nathan Vital Signs: 05:33 BP 183 / 112; Pulse 78; Resp 17; Temp 98; Pulse Ox 99% ; Weight 77.11 kg; Pain 3/10; rv 05:59 BP 161 / 96; Pulse 59; Resp 16; Pulse Ox 98% ; Pain 2/10; rr5 06:27 BP 134 / 90; Pulse 63; Resp 18; Pulse Ox 98% on R/A; rr5 07:25 BP 133 / 93; Pulse 66; Resp 19; Pulse Ox 98% ; sv 08:13 BP 150 / 90; Pulse 66 MON; Resp 14; Pulse Ox 98% on R/A; sv 09:30 Height 5 ft. 0 in. (152.40 cm); sv 09:30 Body Mass Index 33.20 (77.11 kg, 152.40 cm) sv 08:13 Sinus Rhythm sv MDM: 05:23 Patient medically screened. nathan 05:41 Differential diagnosis: abnormal EKG, acute pericarditis, congestive heart failure nathan Cholelithiasis esophagitis, hiatal hernia, pancreatitis, pulmonary embolus, stable angina, unstable angina. HEART Score: History: Slightly Suspicious (0), ECG: Normal (0), Age: > 45 and < 65 years (1), Risk Factors: 1 or 2 risk factors (1), [+ Family HX]. The patient was not given aspirin in the Emergency Department. Patient reports taking aspirin within the past 24 hours. The patient's deep vein thrombosis risk score was calculated as follows: Total Score: 0. This patient was found to be at low risk for a deep vein thrombosis by using the Well's assessment criteria. The patient's pulmonary embolism risk score was calculated as follows: Total Score: 0-2 points. This patient was found to be at low risk for a pulmonary embolism by using the Well's assessment criteria. BRISEYDA Risk Score: 1 - ASA use in past 7 days, TOTAL SCORE = 1. Data reviewed: vital signs, nurses notes, lab test result(s), EKG, radiologic studies, CT scan, plain films. 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 Test interpretation: by ED physician or midlevel provider: ECG, plain radiologic studies. Counseling: I had a detailed discussion with the patient and/or guardian regarding: the historical points, exam findings, and any diagnostic results supporting the discharge/admit diagnosis, the presence of at least one elevated blood pressure reading (>120/80) during this emergency department visit, lab results, radiology results, the need for further work-up and treatment in the hospital. 06/06 05:39 Order name: Basic Metabolic Panel [facility] 06/06 05:39 Order name: CBC with Diff [facility] 06/06 05:39 Order name: LFT's; Complete Time: 06:[address] [facility] 06/06 05:39 Order name: Magnesium; Complete Time: 06:[address] [facility] 06/06 05:39 Order name: NT PRO-BNP; Complete Time: 06:[address] [facility] 06/06 05:39 Order name: PT-INR; Complete Time: 06:[address] [facility] 06/06 05:39 Order name: Troponin (emerg Dept Use Only); Complete Time: 06:[address] [facility] 06/06 05:39 Order name: Lipase; Complete Time: 06:[address] [facility] 06/06 05:39 Order name: Basic Metabolic Panel; Complete Time: 06:57 [facility] 06/06 05:39 Order name: CBC with Automated Diff; Complete Time: 06:32 [facility] 06/06 09:34 Order name: Troponin I [facility] 06/06 09:34 Order name: Lipid Profile [facility] 06/06 12:14 Order name: Troponin I [facility] 06/07 00:08 Order name: COVID-19 [facility] 06/06 05:39 Order name: XRAY Chest (1 view) [facility] 06/06 05:39 Order name: EKG; Complete Time: 05:[address] [facility] 06/06 05:39 Order name: Cardiac monitoring; Complete Time: 05:[address] [facility] 06/06 07:32 Order name: CT Chest For PE Angio [facility] 06/07 00:27 Order name: CORONAVIRUS [facility] 06/07 01:42 Order name: SARS-COV-2 RT PCR [facility] 06/07 05:03 Order name: CBC with Automated Diff [facility] 06/07 05:31 Order name: Basic Metabolic Panel [facility] 06/06 05:39 Order name: EKG - Nurse/Tech; Complete Time: 05:[address] [facility] 06/06 05:39 Order name: IV Saline Lock; Complete Time: 05:[address] [facility] 06/06 05:39 Order name: Labs collected and sent; Complete Time: 05:[address] [facility] 06/06 05:39 Order name: O2 Per Protocol; Complete Time: 05:[address] [facility] 06/06 05:39 Order name: O2 Sat Monitoring; Complete Time: 05:[address] [facility] EC:46 Rate is 75 beats/min. Rhythm is regular. QRS Caroline is Normal. MI interval is normal. QRS nathan interval is normal. QT interval is normal. No Q waves. T waves are Normal. No ST changes noted. Clinical impression: Normal ECG and No evidence of ischemia. Interpreted by me. Reviewed by me. Administered Medications: 05:57 Drug: NS 0.9% 1000 ml Route: IV; Rate: 125 ml/hr; Site: right forearm; rr5 05:57 Drug: Lovenox 1 mg/kg Route: Sub-Q; Site: right upper arm; rr5 06:41 Follow up: Response: No adverse reaction rr5 06:20 Drug: morphine 2 mg {Note: rass 0.} Route: IVP; Site: right forearm; rv 07:05 Follow up: Response: No adverse reaction; RASS: Alert and Calm (0) rr5 06:20 Drug: Zofran (Ondansetron) 4 mg Route: IVP; Site: right forearm; rv 06:41 Follow up: Response: No adverse reaction rr5 06:36 Not Given (Duplicate Order): Lopressor (metoprolol TARTRATE) 50 mg PO once nathan 06:36 Not Given (Duplicate Order): Lopressor 5 mg IVP once; Hold for SBP <100 or HR <60. nathan 06:40 Drug: Lopressor 25 mg Route: PO; rr5 08:11 Follow up: Response: No adverse reaction sv 08:00 Drug: Pepcid 20 mg Route: IVP; Site: right forearm; sv 08:10 Follow up: Response: No adverse reaction sv Disposition: 06/07/20 10:26 Discharged to Home. Impression: Other chest pain. - Condition is Stable. - Medication Reconciliation Form, Thank You Letter, Antibiotic Education, Prescription Opioid Use form. Signatures: Dispatcher [employer] EDJennifer Nieves, RN RN Gopal Tapia RN RN sg Anderson, Corey, MD MD cha Martinez, Teo em1 Holly Finley Ronaldo, RN RN Colt Ochoa RN RN rr5 Corrections: (The following items were deleted from the chart) 08:13 06:35 Hospitalization Ordered by Gelacio Gar for Observation. Preliminary diagnosis eb is Chest pain, unspecified; Essential (primary) hypertension. Bed requested for Telemetry/MedSurg (observation). Status is Observation. Condition is Fair. Problem is new. Symptoms have improved. [facility] 06/07 10:12 12 08:13 06/06/2020 06:35 Hospitalization Ordered by Gelacio Gar for Observation. ag2 Preliminary diagnosis is Chest pain, unspecified; Essential (primary) hypertension. Bed requested for [facility] ER HOLD. Status is Observation. Condition is Fair. Problem is new. Symptoms have improved. eb
[2020-06-06 06:49] LABS: ALT/SGPT 20 U/L (12-78); Albumin 3.9 g/dL (3.4-5.0); Alkaline Phosphatase 83 U/L (45-117); BUN Blood Urea Nitrogen 12 mg/dL (7-18); Bicarbonate 28 mmol/L (21-32); Bilirubin Direct 0.1 mg/dL (0-0.2); Bilirubin Total 0.4 mg/dL (0.2-1.0); Glucose Level 96 mg/dL (74-106); Lipase 148 U/L (73-393); NT PRO-BNP 7 pg/mL (<125); Protein, Total 7.8 g/dL (6.4-8.2); Sodium Level 142 mmol/L (136-145); Troponin (Emerg Dept Use Only) < 0.02 ng/mL (0.0-0.045)
[2020-06-06 06:50] LABS: AST/SGOT 15 U/L (15-37); Magnesium 2.3 mg/dL (1.8-2.4); Potassium 3.9 mmol/L (3.5-5.1)
[2020-06-06] MEDS ORDERED: METOPROLOL TAR 25 MG TAB ONE (06:52)
--- NOTE | 2020-06-06 08:06 | RAD REPORT ---
EXAM DESCRIPTION: CT - Chest For Pe Angio - 06/06/2020 7:49 am CLINICAL HISTORY: CHEST PAIN COMPARISON: Chest Single View dated 06/06/2020 TECHNIQUE: Dynamically enhanced 3 mm thick images of the chest were obtained during administration o f approximately 150mL Isovue 370 IV contrast. Coronal and oblique MIP reconstruction images were gene rated and reviewed. Exam utilizes a protocol to evaluate the pulmonary arterial tree. All CT scans are performed using dose optimization technique as appropriate and may include automated exposure control or mA/KV adjustment according to patient size. FINDINGS: No pulmonary emboli are identified. Respiratory motion limits assessment of the far periph eral pulmonary arterial branches. The aorta as imaged shows no acute or suspicious finding. No pericardial thickening or effusion. No infiltrate or mass in the lung parenchyma. Respiratory motion accentuates the lung base interstiti al pattern. No pleural effusion or pleural thickening. No mediastinal or hilar suspicious masses. No chest wall masses or abnormal axillary lymphadenopathy. IMPRESSION: No pulmonary emboli identified. No other significant or suspicious findings.
[2020-06-06] MEDS ORDERED: FAMOTIDINE 20 MG/2 ML VIAL IV ONE (08:11)
--- NOTE | 2020-06-06 08:17 | P.HP ---
Certification for Inpatient Patient admitted to: Observation With expected LOS: <2 Midnights Practitioner: I am a practitioner with admitting privileges, knowledge of patient current condition, hospital course, and medical plan of care. Services: Services provided to patient in accordance with Admission requirements found in Title 42 Section 412.3 of the Code of Federal Regulations Patient History Date of Service: 06/06/20 Reason for admission: Chest pain History of Present Illness: 55-year-old woman with a history of rheumatoid arthritis and GERD presented to the emergency department with a complaint of chest pain of 2 days duration. Patient described chest pain initially on the right anterior aspect, progressed to involve the left anterior chest, maximum intensity 7/10, nonradiating, no no relieving or aggravating factors. Patient has no known cardiac history. No history of hypertension. She had a similar chest pain 6 months ago and had a stress test which was read as normal. She stated she has been exercising since her abdominoplasty surgery and able to walk up to about 45 min on the treadmill without chest pain. Her blood pressure was initially elevated with systolic up to 180 in the ED. Her systolic blood pressure had improved to 130 by the time I saw her in the ED. Her initial troponin in the ED is negative. EKG shows normal sinus rhythm with no ischemic changes. CBC and BMP unremarkable. Patient is placed under observation for chest pain rule out. Allergies aspirin Adverse Reaction (Verified 12/16/14 11:29) UPSET STOMACH Home Medications: Ibuprofen [Motrin] 800 mg PO DAILYPRN PRN 03/31/12 Magnesium Oxide [Mag 0X*] 250 mg PO DAILY 03/31/12 Acetaminophen [Tylenol Extra Strength] 500 mg PO Q6HP PRN 12/12/14 Levothyroxine Sodium [Levothroid] 75 mcg PO DAILY 12/12/14 Multivitamin [Multivitamins] 1 each PO DAILY 12/12/14 Omeprazole [Prilosec] 40 mg PO DAILY 12/12/14 Tamsulosin [Flomax*] 1 tab PO DAILY 12/12/14 - Past Medical/Surgical History Diabetic: No -: Rheumatoid arthritis -: GERD -: Hypothyroidism -: Abdominoplasty -: Tonsillectomy -: Hysterectomy - Family History Mother -: Hypertension, Diabetes, Cancer (Lung) Father -: Cancer (Lung) - Social History Smoking Status: Never smoker Alcohol use: Yes CD- Drugs: No Caffeine use: Yes Review of Systems Other: Except as documented, all other systems reviewed and negative. Physical Examination - Physical Exam General: Alert, In no apparent distress, Oriented x3 HEENT: Atraumatic, PERRLA, Mucous membr. moist/pink, EOMI, Sclerae nonicteric Neck: Supple, JVD not distended, No Thyromegaly Respiratory: Clear to auscultation bilaterally, Normal air movement Cardiovascular: No edema, Regular rate/rhythm, Normal S1 S2 Gastrointestinal: Normal bowel sounds, Soft and benign, No tenderness Musculoskeletal: No swelling, No tenderness Integumentary: No rashes, No erythema Neurological: Normal speech, Normal strength at 5/5 x4 extr, Cranial nerves 3-12 intact - Studies Laboratory Data (last 24 hrs) 06/06/20 05:40: PT 12.8 H, INR 1.09 06/06/20 05:40: WBC 7.1, Hgb 13.7, Hct 40.9, Plt Count 228 06/06/20 05:40: Sodium 142, Potassium 3.9, BUN 12, Creatinine 0.97, Glucose 96, Magnesium 2.3, Total Bilirubin 0.4, AST 15, ALT 20, Alkaline Phosphatase 83, Lipase 148 Assessment and Plan - Problems (Diagnosis) (1) Chest pain Current Visit: Yes Status: Acute (2) Rheumatoid arthritis Current Visit: Yes Status: Acute (3) Hypothyroidism Current Visit: Yes Status: Acute (4) Elevated blood pressure reading Current Visit: Yes Status: Acute - Plan Place under observation Trend troponin. Pain management as in the Patient has low risk for CAD. Present stress test was negative. ACS much less likely. Symptoms also associated with midback pain worse with movement. I suspect musculoskeletal chest pain. Planning to D/C for outpatient follow up if her troponin trend negative. Follow CTA thorax result. Continue home medications for hypothyroidism and rheumatoid arthritis. - Advance Directives Does patient have a Living Will: No Does patient have a Durable POA for Healthcare: No
[2020-06-06] MEDS ORDERED: MORPHINE 4 MG/ML SYR IV PRN (08:30)
[2020-06-06] MEDS ORDERED: NITROGLYCERIN 0.4 MG/TAB SL PRN (08:30)
--- NOTE | 2020-06-06 08:30 | RAD REPORT ---
EXAM DESCRIPTION: RAD - Chest Single View - 06/06/2020 7:10 am CLINICAL HISTORY: CHEST PAIN COMPARISON: Portable June 15 TECHNIQUE: AP portable chest image was obtained 06/06/2020 7:10 am . FINDINGS: Lungs are clear. Heart and vasculature are normal. No measurable pleural effusion and no p neumothorax. No acute bony abnormality seen. No acute aortic findings suspected. IMPRESSION: No acute cardiopulmonary process. No significant change from comparison study.
[2020-06-06 09:31] VITALS: BMI 33.1
[2020-06-06 09:33] LABS: HDL Cholesterol 51 mg/dL (40-60); LDL Cholesterol, Calculated 59 (<130); Troponin I < 0.02 ng/mL (0.0-0.045)
[2020-06-06] MEDS ORDERED: INFLUENZA VACCINE (for 3y+) 0.5 ML DOSE IMVAC ONE ×2 (10:00→19:56)
--- NOTE | 2020-06-06 16:06 | EKG ---
Test Date: 2020-06-06 Test Time: 05:33:49 Hot Dip Plater: RR MEASUREMENT RESULTS: Intervals: Rate: 75 MD: 152 QRSD: 80 QT: 390 QTc: 435 [place]: P: 69 MD: 152 QRS: 24 T: 38 INTERPRETIVE STATEMENTS: Normal sinus rhythm Normal ECG Compared to ECG 06/15/2019 21:43:28 No significant changes Electronically Signed On 06-06-20 16:05:19 GIVING OFFICER by Juan A Trinh
[2020-06-07 00:43] VITALS: BP 155/85
[2020-06-07 05:02] LABS: Basophils % 0.8 % (0-1.3); Hematocrit 37.8 % (36.0-45.0); Lymphocytes % 48.8 % (15.3-44.8); MPV 8.6 fL (7.6-11.3); RBC Red Blood Cell Count 4.52 M/uL (3.86-4.86)
[2020-06-07 05:30] LABS: Potassium 3.6 mmol/L (3.5-5.1)
[2020-06-07 05:45] VITALS: TEMP 97.9
--- NOTE | 2020-06-07 08:58 | P.DS ---
Admission Date: 06/06/20 Discharge Date: 06/07/20 Disposition: ROUTINE DISCHARGE Discharge Condition: FAIR Reason for Admission: Chest pain - Problems (1) Chest pain Current Visit: Yes Status: Acute (2) Rheumatoid arthritis Current Visit: Yes Status: Acute (3) Hypothyroidism Current Visit: Yes Status: Acute (4) Elevated blood pressure reading Current Visit: Yes Status: Acute Brief History of Present Illness: 55-year-old woman with a history of rheumatoid arthritis and GERD presented to the emergency department with a complaint of chest pain of 2 days duration. Patient described chest pain initially on the right anterior aspect, progressed to involve the left anterior chest, maximum intensity 7/10, nonradiating, no no relieving or aggravating factors. Patient has no known cardiac history. No history of hypertension. She had a similar chest pain 6 months ago and had a stress test which was read as normal. She stated she has been exercising since her abdominoplasty surgery and able to walk up to about 45 min on the treadmill without chest pain. Her blood pressure was initially elevated with systolic up to 180 in the ED. Her systolic blood pressure had improved to 130 by the time I saw her in the ED. Her initial troponin in the ED is negative. EKG shows normal sinus rhythm with no ischemic changes. CBC and BMP unremarkable. Patient is placed under observation for chest pain rule out. Vital Signs/Physical Exam: Temp Pulse Resp BP Pulse Ox 97.9 F 70 18 155/85 H 100 06/07/20 04:00 06/07/20 04:00 06/07/20 04:00 06/07/20 00:00 06/07/20 04:00 Laboratory Data at Discharge: WBC 6.2 K/uL (4.3-10.9) 06/07/20 04:45 Hgb 12.4 g/dL (12.0-15.0) 06/07/20 04:45 Hct 37.8 % (36.0-45.0) 06/07/20 04:45 Plt Count 219 K/uL (152-406) 06/07/20 04:45 PT 12.8 SECONDS (9.5-12.5) H 06/06/20 05:40 INR 1.09 06/06/20 05:40 Sodium 142 mmol/L (136-145) 06/07/20 04:45 Potassium 3.6 mmol/L (3.5-5.1) 06/07/20 04:45 BUN 9 mg/dL (7-18) 06/07/20 04:45 Creatinine 0.86 mg/dL (0.55-1.3) 06/07/20 04:45 Glucose 91 mg/dL (74-106) 06/07/20 04:45 Magnesium 2.3 mg/dL (1.8-2.4) 06/06/20 05:40 Total Bilirubin 0.4 mg/dL (0.2-1.0) 06/06/20 05:40 AST 15 U/L (15-37) 06/06/20 05:40 ALT 20 U/L (12-78) 06/06/20 05:40 Alkaline Phosphatase 83 U/L (45-117) 06/06/20 05:40 Troponin I < 0.02 ng/mL (0.0-0.045) 06/06/20 11:50 Triglycerides 98 mg/dL (<150) 06/06/20 09:07 Cholesterol 130 mg/dL (<200) 06/06/20 09:07 HDL Cholesterol 51 mg/dL (40-60) 06/06/20 09:07 Cholesterol/HDL Ratio 2.55 06/06/20 09:07 Lipase 148 U/L (73-393) 06/06/20 05:40 Home Medications: Magnesium Oxide [Mag 0X*] 250 mg PO DAILY 03/31/12 Levothyroxine Sodium [Levothroid] 75 mcg PO DAILY 12/12/14 Celecoxib 200 mg PO DAILY 06/06/20 Cholecalciferol (Vitamin D3) [Vitamin D3] 50 mcg PO DAILY 06/06/20 Cyanocobalamin (Vitamin B-12) [Vitamin B12] 1,000 mcg PO DAILY 06/06/20 Pantoprazole Sodium [Protonix] 40 mg PO DAILY 06/06/20 Turmeric/Turmeric Ext/Pepr Ext [Turmeric Complex 500 mg Cap] 1 each PO DAILY 06/06/20 Diet: AHA Activity: Ad luis antonio Followup: MAREK JARA [Primary Care Provider] -
[2020-06-07] MEDS ORDERED: ENOXAPARIN 40 MG/0.4 ML SQ SCH (09:00)
[2020-06-07 10:32] VITALS: O2SAT 98
== END 2020-06-07 10:10 | disposition home or self-care (01) ==
LOC: ER 05:20 → ERHOLD 08:22
PROVIDERS: ADMIT Internal Medicine; ATTEND Internal Medicine
DX: R07.9 Chest pain, unspecified (principal); M06.9 Rheumatoid arthritis, unspecified; E03.9 Hypothyroidism, unspecified; K21.9 Gastro-esophageal reflux disease without esophagitis; R03.0 Elevated blood-pressure reading, without diagnosis of hypertension; Z20.828 Contact with and (suspected) exposure to other viral communicable diseases
CPT/HCPCS: 93005; 85025 ×2; 80048 ×2; 36415; 83735; 85610; 80061; 80076; 84484 ×3; 83690; 83880; 71275; 71045; 90471; 96375; 96372; 96374; 99285; U0003; Q9967; Q2035; J2270 ×2; J7030; J2405

== ENCOUNTER 2020-11-06 12:51 | Emergency (ER) | payer BC ==
--- OUTSIDE RECORDS SUMMARY | 2020-11-06 12:54 | XMS REPORT | Continuity of Care Document ---
:1965 Author Organization [facility] t Address [address] [place] [address] Care Team Providers Name Role Phone ASUNCION SUTHERLAND Primary Care Physician Unavailable Franklin Beltran MD Attending Clinician Asuncion Sutherland NP Attending Clinician ASUNCION SUTHERLAND Attending Clinician Unavailable Sunny RESTREPO Attending Clinician Lb RD Attending Clinician Pipe VELÁSQUEZ Attending Clinician Medardo Fuentes DO Attending Clinician Payers Payer Name Policy Type Policy Effective Date Expiration Date Sour ce Number BCBS OF [id number] 2017 [place] o [facility] 00:00:00 [facility] dical [id number] Branch 8 2016-Prese [phone], [place] [address]WWH/POS BLUE CROSS BLUE [id number] 2017 MD Jer [facility] 00:00:00 HMO BLUE/BLUE [id number] 2016-P resentHMO Problems Condition Condition Condition Status Onset Resolution Last Treating Co mments Source Name Details Category Date Date Treatment Clinician Date Abdominal Abdominal Disease Active Uni vers pain, pain, 5-21 ity [place]spec[place] Medical abdominal abdominal Bran ch location location Excessive Excessive Disease Active Uni vers gas gas 5-21 ity of 00:00: [place] 00 Medical Branch Nausea Nausea Disease Active Univers 5-21 ity of 00:00: [place] [facility] Midline Midline Disease Active Univers low back low back 5-21 ity of pain pain 00:00: [place] without without 00 Medical sciatica, sciatica, Bran ch unspecifie unspecifie d d chronicity chronicity Lactose Lactose Disease Active Univers intoleranc intoleranc 5-21 it y of e e 00:00: [place] 00 Medical Branch Osteoporos Osteoporos Disease Active M D is is 06-09 Anderso 00:00: n 00 Gastroesop Gastroesop Disease Active U maikel hageal hageal 1-23 ity of reflux reflux 00:00: [place] disease disease 00 Medical without without Branch esophagiti esophagiti s s RA RA Disease Active Univers (rheumatoi (rheumatoi 7-18 it y of d d 00:00: [place] arthritis) arthritis) 00 Me dical Branch Postoperat Postoperat Disease Active U nivers sarah sarah 6-20 ity of hypothyroi hypothyroi 00:[place] dis[place] dism 00 Medical [place] Tubular Tubular Disease Active Overview: adenoma of adenoma of 11-07 [facility] colon colon 00:00: g of this n 00 note might be different from the original. Pathology reviewed from the colonosco py I performed in October tubular adenomas removedRe sults released to patient Next exam due in 5 yearsFoll ow up with referring Marge Juarez nterology , Hepatolog y & Nutrition Mixed Mixed Disease Active connective connective 06-09 An derso tissue tissue 00:00: n disease disease 00 Mixed Mixed Disease Active Univers connective connective 06-09 it y of tissue tissue 00:00: [place] disease disease 00 Medical Branch Hypothyroi Hypothyroi Disease Active M D dism dism Anderso n Hypertensi Hypertensi Disease Active M D on on Anderso n Allergies, Adverse Reactions, Alerts Allergy Allergy Status Severity Reaction(s) Onset Inactive Treating Comm ents Source Name Type Date Date Clinician Aspirin Drug Active Other - See Upsets Univ ers Intolera comments 6-20 stomach ity o f nce 00:00: [address] Branch Family History Family Member Diagnosis Comments Start Date Stop Date Source Natural father Lung cancer MD Wisdom on Maternal grandmother -Breast cancer MD Cage Natural mother Uterine cancer Social History Social Habit Start Date Stop Date Quantity Comments Source Exposure to Not sure [facility]-CoV-2 [facility] (event) [place] Tobacco use and 2020-09-25 2020-09-25 Never used MD Wisdom on exposure 00:00:00 00:00:00 Alcohol intake 2020-09-25 2020-09-25 Current drinker MD Nguyen nichole 00:00:00 00:00:00 of alcohol (finding) Alcohol Comment 2015-11-03 2015-11-03 per month MD Wisdom on 00:00:00 00:00:00 History of 2010-11-26 Cigarette Smoker [facility] of tobacco use 00:00:00 [facility] Sex Ass[birth year] At [birth year] MD Wisdom on 00:00:00 00:00:00 Smoking Status Start Date Stop Date Source Never smoker MD Cage Former smoker 2020-06-19 00:00:00 2020-06-19 00:00:00 [facility] Medications Ordered Filled Start Stop Current Ordering Indication Dosage Frequency Signature Comments Components Source Medication Medication Date Date Medication? Clinician (SIG) Name Name CELECOXIB Yes RA TAKE 1 Univer s 200 mg -07 (rheumatoid CAPSULE BY ity of capsule 00:00: arthritis) MOUTH Mike as 00 DAILY Medical Branch MAGNESIUM No 250mg Take 250 MD AMINO ACID 4-19 04-19 mg by Anderso CHELATE 19:03: 00:00 mouth n ORAL 11 :00 daily. ibuprofen 2020- No 800mg Take 800 MD (ADVIL,MOTR 4-19 04-19 mg by Artis o IN) 800 mg 19:03: 00:00 mouth as n tablet 01 :00 needed. B-complex Yes 1{tbl} Take 1 MD with 4-19 tablet by Hernan vitamin C 18:49: mouth n tablet 16 daily. turmeric Yes by (CURCUMIN 4-19 miscellane Jer rso MISC) 18:49: ous route n 16 daily. cholecalcif Yes 2000U Take 2,000 MD desmond, 4-19 Units by Hernan vitamin D3, 18:49: mouth n (VITAMIN 16 daily. D3) 2,000 units tab tablet magnesium Yes Take by 250 mg tab -19 mouth. Andersshabnam 18:49: n 16 mecobalamin Yes Chew. , vitamin 4- Andashley B12, 1,000 18:49: n mcg chew 16 UNABLE TO Yes Med Name: MD SANTIAGO 09-25 GI Anderso 18:49: Natural/ n 16 [facility] UNABLE TO Yes Med Name: MD SANTIAGO - Tonny Med Anderso 18:49: Syrup n 16 250mg multivit-mi Yes Take by nerals/foli -19 mouth. Artis o c acid 18:49: n (CENTRUM 16 MULTIGUMMIE S ORAL) levothyroxi Yes 75ug Take 75 MD ne 4-19 mcg by Henran (SYNTHROID, 18:45: mouth n LEVOTHROID) 13 daily. 75 mcg tablet CELECOXIB 2020- No RA TAKE 1 Unive rs 200 mg 09-13-07 (rheumatoid CAPSULE BY ity of capsule 00:00: 00:00 arthritis[place]TH [place] :00 DAILY Medical Branch amLODIPine Yes TAKE 1 MD (NORVASC) 5 3-10 TABLET BY And erso mg tablet 00:00: MOUTH n 00 EVERY DAY PANTOPRAZOL Yes Gastroesoph TAKE 1 Univers E 40 mg EC 3-08 ageal TABLET BY ity of tablet 00:00: reflux MOUTH [place] 00 disease DAILY Medical without Branch esophagitis Cholecalcif Yes Take by Silver dennison desmond, 1-11 mouth. ity of Vitamin D3, 21:15: Sirena (VITAMIN 37 Medical D3) 50 mcg Branch (2,000 unit) tablet Magnesium Yes Take by Univ ers 250 mg Tab 1-11 mouth. ity of 21:15: [place] 37 Medical Branch mecobalamin Yes Take by Un jesi , vitamin 1-11 mouth. ity of B12, (B12 21:15: [place] ACTIVE) 37 Medical 1,000 mcg Branch Chew levothyroxi Yes 75ug Take 75 Uni vers ne 75 mcg 1-08 mcg by ity of tablet 22:33: mouth [place] 05 every Medical morning. Branch pantoprazol 2015-06 Yes 40mg Take 40 mg MD minor 2-04 by mouth Anderso (PROTONIX) 00:00: daily. n 40 mg EC 00 tablet celecoxib 2015-06 Yes 200mg Take 200 MD (CeleBREX) 1-23 mg by Anderso 200 mg 00:00: mouth n capsule 00 daily. Immunizations Ordered Immunization Filled Immunization Date Status Commen ts Source Name Name Dee SARS-CoV-2 2020-09-11 Completed MD And erson Vaccination 00:00:00 Ashkana SARS-CoV-2 2020-08-17 Completed MD And erson Vaccination 00:00:00 Vital Signs Vital Name Observation Time Observation Value Comments Source Systolic blood pressure 2020-09-25 18:44:03 128 mm[Hg] MD Cage Diastolic blood pressure 2020-09-25 18:44:03 95 mm[Hg] MD Cage Heart rate 2020-09-25 18:44:03 75 /min MD Aquino brandon Respiratory rate 2020-09-25 18:44:03 16 /min MD Bev elias Body height 2020-09-25 18:36:00 155.5 cm MD Miles taylor Body weight 2020-09-25 18:36:00 80 kg MD Aquino brandon BMI 2020-09-25 18:36:00 33.09 kg/m2 MD Miles taylor Procedures Procedure Date / Time Performed Performing Clinician [facility] e US BREAST COMPLETE LEFT 2020-09-26 14:12:46 Nadiya Sutherland MD MAMMO DIGITAL SCREENING 2020-09-25 17:35:30 Nadiya Sutherland MD BILATERAL W DAMON Plan of Care Planned Activity Planned Date Details Comments Source Future Scheduled 2026-04-17 Screening for [facility] Test 00:00:00 malignant neoplasm of Medica l Branch colon (procedure) [code = 540691088] Future Scheduled 2026-04-17 Screening for [facility] Test 00:00:00 malignant neoplasm of Medica l Branch colon (procedure) [code = 845562191] Future Scheduled 2021-06-19 Depression screening Uni [facility] Test 00:00:00 (procedure) [code = Medical Branch [id number]] Future Scheduled 2021-02-07 [facility] (Season Ended) [code = Medic al Branch INFLUENZA VACCINE (Season Ended)] Future Scheduled 2018-04-18 Screening for [facility] Test 00:00:00 malignant neoplasm of Medica l Branch cervix (procedure) [code = 431232926] Future Scheduled 2018 Screening for [facility] Test 00:00:00 malignant neoplasm of Medica l Branch lung (procedure) [code = 087971951] Future Scheduled 2017-03-20 Screening for [facility] Test 00:00:00 malignant neoplasm of Medica l Branch breast (procedure) [code = 418571239] Future Scheduled 2013 [facility] [place] [place] [facility]:00 blood in feces Medical Branc h (procedure) [code = 286318563] Future Scheduled 2013 Stool DNA-based [facility] Test 00:00:00 colorectal cancer Medical Br anch screening (procedure) [code = 352378603871055] Future Scheduled [address] [facility] [facility] [place] [place] [facility] 00:00:00 sigmoidoscopy Medical Branch (procedure) [code = 66942148] Future Scheduled [address]combinant [facility] [place] [place] Test 00:00:00 Vaccine (SHINGRIX) (1 Medica l Branch of 2) [code = Zoster Recombinant Vaccine (SHINGRIX) (1 of 2)] Future Scheduled 1982 DTaP,Tdap,and Td Univers ity [facility] Test 00:00:00 Vaccines (1 - Tdap) Medical Branch [code = DTaP,Tdap,and Td Vaccines (1 - Tdap)] Future Scheduled 1981 Hepatitis C screening [facility] [place] [place] [facility] 00:00:00 (procedure) [code = Medical Branch [id number]] Future Scheduled 1979 SARS-CoV-2 (COVID-19) [facility] [place] [place] [facility] 00:00:00 Vaccine (1) [code = Medical Branch SARS-CoV-2 (COVID-19) Vaccine (1)] Encounters Start End Encounter Admission Attending Care Care Encounter Source Date/Time Date/Time Type Type Clinicians Facility Department ID 2020-10-13 2020[facility]10-13 [id number] 00:00:00 00:00:00 [facility] [id number] [facility] [id number] Professio [phone] nal [address] One 2020-09-26 2020-09-26 Outpatient NADIYA LEON [facility] [id number] 08:25:18 08:25:18 Artisnemesio sanabria 2020-09-25 2020-09-25 Outpatient ERUM NADIYA SUTHERLAND [facility] [id number] 13:27:00 13:27:00 Artis sanabria 2020-09-25 2020-09-25 Outpatient ERUM NADIYA SUTHERLAND [facility] [id number] 11:46:15 11:46:15 Artisnemesio sanabria 2020-09-19 2020-09-19 [facility] [id number] 13:52:17 14:52:17 Visit Jaleesa Del Toroton [id number] Radha [id number] Professio [phone] [facility] 220 [facility] 2020-09-13 2020-09-13 [facility] [id number] 00:00:00 00:00:00 [facility] [id number] [facility] [id number] Professio [phone] nal 044 [address] One 2020-08-19 2020-08-19 Patient Alfredo [facility] [id number] 00:00:00 00:00:00 Outreach Sage [facility] [id number] [facility] [id number] PAVILLION [id number] [id number] 2020-08-16 2020-08-16 [facility]patient [facility] [id number] [facility] 00[facility]00 [facility] 2020-08-14 2020-08-14 Refill Ruby [facility] [id number] 00:00:00 00:00:00 [facility] [id number] [place] [id number] Professio [phone] nal 044 Office [address] One 2020-08-11 2020-08-11 Outpatient STLMLC [facility] [id number] [facility] 00:[facility] 00[facility]00 [facility] Out[facility] 2020-07-17 2020-07-17 Outpatient STLMLC [facility] [id number] [facility] 00:[facility] 00[facility]00 [facility] 2020-06-19 2020-06-19 Office Ruby [facility] [id number] 14:56:13 15:11:13 Visit [facility] [id number] [facility] [id number] Professio [phone] [place] [address] [address] One Results Test Description Test Time Test Comments Results Result [facility] e Comments US Breast 2020-09-26 There is no MD Cage Complete Left 14:29:21 sonographic evidence of malignancy. Follow-up mammogram in 1 year is recommended. BI-RADS Category 2:Benign Finding(s) These results and recommendations were personally discussed with the patient atthe time of the examination. Interface, Radiology Results In - 09/26/2020 9:29 AM CDT CLINICAL INDICATION:Patient is a 55 year old female and is seen for additional evaluation requestedfrom prior study FILMS COMPAREDThe present examination has been compared to prior imaging studies performed [facility] on 02/17/2019 and 09/25/2020. Images were obtained in multiple scanning planes. Real-time sonographic imaging of the left breast (including all 4 quadrants andretroareolar region) was performed. Real time sonographic imaging of the leftaxilla was performed. 1: Additional evaluation was performed for the area of nodularity in the leftbreast, retroareolar seen on 09/25/2020. in the left breast, mild duct ectasianoted, corresponding to findings noted on prior mammogram. No suspicious mass. 2: There are a few mildly prominent lymph nodes in the left axilla. This ismost consistent with patient's recent vaccination in the left arm. IMPRESSION:There is no sonographic evidence of malignancy. Follow-up mammogram in 1 year is recommended. BI-RADS Category 2:Benign Finding(s) These results and recommendations were personally discussed with the patient atthe time of the examination. Mammography Digital Screening Bilateral with Damon 2020-09-25 17:47:41 Test Item Value Reference Range Interpretation Comme nts IMP (test code = IMP) Area of nodularity in the left breast requires additional imaging evaluation. Anultrasound exam is recommended. BI-RADS Category 0:Incomplete: Needs Additional Imaging Evaluation PXN (test code = PXN) Interface, Radiology Results In - 09/25/2020 12:47 PM CDT CLINICAL INDICATION:Patient is a 55 year old female and is seen for screening. MAMMO DIGITAL SCREENING BILATERAL W TOMODigital Mammogram evaluated with Computer Aided Detection (CAD). COMPARISON:The present examination has been compared to prior imaging studies performed [facility] on 05/12/2015, 05/15/2016, 12/29/2017 and02/17/2019. FINDINGS:The breasts are heterogeneously dense, which may obscure small masses. There is an area of nodularity in the anterior retroareolar region of the leftbreast. These may be related to ductal ectasia. Ultrasound to confirmbenignity is recommended. In the right breast, no dominant mass, distortion, or suspicious calcificationsare identified. Tomosynthesis performed in CC and MLO projections. IMPRESSION:Area of nodularity in the left breast requires additional imaging evaluation. Anultrasound exam is recommended. BI-RADS Category 0:Incomplete: Needs Additional Imaging Evaluation Lab Interpretation (test code = Abnormal 37385-8) MD Cage
[2020-11-06 16:28] LABS: Urine Blood Negative (Negative); Urine Glucose Negative (Negative); Urine Protein Negative (Negative); Urine Specific Gravity 1.025 (1.005-1.030)
[2020-11-06 16:37] LABS: Urine Specific Gravity/Preg 1.025 (1.005-1.030)
[2020-11-06 18:03] LABS: Absolute Lymphocytes (CBC) 3.3 K/uL (0.7-4.9); Basophils % 0.7 % (0-1.3); Hematocrit 39.9 % (36.0-45.0); Lymphocytes % 42.1 % (15.3-44.8); MPV 8.5 fL (7.6-11.3); RBC Red Blood Cell Count 4.58 M/uL (3.86-4.86)
[2020-11-06] MEDS ORDERED: ONDANSETRON 4 MG/2 ML VIAL ONE (18:03)
[2020-11-06] MEDS ORDERED: MORPHINE 4 MG/ML SYR ONE (18:03)
[2020-11-06 18:27] LABS: Albumin 3.6 g/dL (3.4-5.0); Bilirubin Direct 0.1 mg/dL (0-0.2); Bilirubin Total 0.4 mg/dL (0.2-1.0); Protein, Total 7.7 g/dL (6.4-8.2)
--- NOTE | 2020-11-06 19:16 | RAD REPORT ---
EXAM DESCRIPTION: CT - Abdomen Pelvis W Contrast - 11/06/2020 6:54 pm CLINICAL HISTORY: right lower abdominal pain COMPARISON: <Comparisons> TECHNIQUE: Biphasic, helical CT imaging of the abdomen and pelvis was performed following 100 ml non -ionic IV contrast. No oral contrast administered. All CT scans are performed using dose optimization technique as appropriate and may include automated exposure control or mA/KV adjustment according to patient size. FINDINGS: No suspicious findings in the lung bases. The liver, spleen, and pancreas show no suspicious focal findings. Mild diffuse fatty infiltration th e liver is present. No gallbladder or biliary tree abnormality. Symmetric renal function is seen with no hydronephrosis or suspicious renal mass. No obstructing or n onobstructing calculi. No pyelonephritis or acute parenchymal process. No bladder abnormalities. No a drenal abnormalities. Uterus is absent. Ovaries show no suspicious findings. No stomach or small bowel abnormality. The tip of the appendix in the anterior right lower quadrant i s 10 mm in diameter with the main body of the appendix 7 mm. No appendicolith is present. There may b e trace stranding in the adjacent fat. No free air, pneumatosis or free fluid. No colon abnormality seen. No mass or bulky lymphadenopathy. Abdominal plasty changes are present. There is a small remna nt 10 millimeter diameter umbilical hernia that extends through the surgical change. No suspicious bony findings. No suspicious vascular finding. IMPRESSION: Contrast enhanced CT abdomen and pelvis showing no acute or emergent finding at this slade e. There is fullness to the tip of the appendix. The findings are not sufficient for a definitive append icitis diagnosis. Correlation can be made with clinical findings and lab findings. Re-evaluation imag ing could be performed if the patient develops new or progressive symptoms. No acute or FISHER TROLL LINE process. There is fatty infiltration of the normal size liver.
--- NOTE | 2020-11-06 19:58 | ER ---
Nurse's Notes [facility] Name: Akosua Ludwig Age: 55 yrs Sex: Female : 1965 Arrival Date: 11/06/2020 Time: 12:53 Bed 24 Private MD: Diagnosis: Abdominal and pelvic pain Presentation: 11/06 12:58 Chief complaint: Patient states: R lower back pain that wraps to RLQ and R leg for 4 ll1 days. Frequent urination with oliguria, no dysuria. No fever or N.V/D. Coronavirus screen: Client denies travel out of the [place] in the last 14 days. At this time, the client does not indicate any symptoms associated with coronavirus-19. Ebola Screen: Patient denies travel to an Ebola-affected area in the 21 days before illness onset. Initial Sepsis Screen: Does the patient meet any 2 criteria? No. Patient's initial sepsis screen is negative. Does the patient have a suspected source of infection? Yes: Acute abdominal pain. Risk Assessment: Do you want to hurt yourself or someone else? Patient reports no desire to harm self or others. Onset of symptoms was November 02, 2020. 12:58 Method Of Arrival: Ambulatory ll1 12:58 Acuity: RAVINDER 3 ll1 Historical: - Allergies: 13:01 Aspirin; ll1 13:01 Gluten Protein; ll1 - PMHx: 13:01 celiac disease; Kidney stones; Rheumatoid Arthritis; ll1 - PSHx: 13:01 Thyroidectomy; Hysterectomy; Tonsillectomy; Tubal ligation; Tummy tuck; ll1 - Immunization history:: Flu vaccine is up to date. - Social history:: Smoking status: Patient denies any tobacco usage or history of. Screenin:10 Abuse screen: Denies threats or abuse. Denies injuries from another. Nutritional zb screening: No deficits noted. Tuberculosis screening: No symptoms or risk factors identified. Fall Risk None identified. Assessment: 16:05 General: Appears in no apparent distress. uncomfortable, Behavior is calm, cooperative. zb Pain: Complains of pain in right femoral area, suprapubic area and right inguinal area Pain radiates to low back area Pain currently is 6 out of 10 on a pain scale. Quality of pain is described as aching, dull, Pain began 3-4 days. Neuro: Level of Consciousness is awake, alert, obeys commands, Oriented to person, place, time, situation, Moves all extremities. Full function. Cardiovascular: Capillary refill < 3 seconds in bilateral fingers Patient's skin is warm and dry. Respiratory: Airway is patent Respiratory effort is even, unlabored, Respiratory pattern is regular, symmetrical. GI: Abdomen is round Bowel sounds present X 4 quads. Abdomen is tender to palpation in right lower quadrant. : Reports urgency, urinary frequency. Derm: Skin is intact, is healthy with good turgor, Skin is dry, Skin is normal, Skin temperature is warm. Musculoskeletal: Circulation, motion, and sensation intact. Range of motion: intact in all extremities. 17:00 Reassessment: Patient appears in no apparent distress at this time. Patient and/or zb family updated on plan of care and expected duration. Pain level reassessed. Patient is alert, oriented x 3, equal unlabored respirations, skin warm/dry/pink. patient able to ambulate to the restroom. 18:01 Reassessment: Patient appears in no apparent distress at this time. Patient and/or zb family updated on plan of care and expected duration. Pain level reassessed. Patient is alert, oriented x 3, equal unlabored respirations, skin warm/dry/pink. lights dimmed. family at beside. 19:00 Reassessment: Patient appears in no apparent distress at this time. Patient and/or zb family updated on plan of care and expected duration. Pain level reassessed. Patient is alert, oriented x 3, equal unlabored respirations, skin warm/dry/pink. Patient denies pain at this time. Patient states feeling better. Patient states symptoms have improved. 19:30 Reassessment: patient stated that she is ready to go. notified ecp. zb 20:07 Reassessment: patient ambulated out. gait even and steady. no issue at this time. pain zb 0/10. Vital Signs: 12:58 BP 135 / 79; Pulse 86; Resp 17; Temp 97.3; Pulse Ox 98% ; Weight 78.02 kg; Height 5 ft. ll1 5 in. (165.10 cm); Pain 7/10; 16:05 BP 150 / 102; Pulse 73; Resp 16; Pulse Ox 100% on R/A; zb 18:02 BP 141 / 80; Pulse 64; Resp 19; Pulse Ox 97% on R/A; zb 19:00 BP 142 / 79; Pulse 68; Resp 16; Pulse Ox 100% on R/A; zb 12:58 Body Mass Index 28.62 (78.02 kg, 165.10 cm) 1 ED Course: 12:53 Patient arrived in ED. ds1 13:00 Triage completed. ll1 13:01 Arm band placed on. ll1 16:05 Graciela Pandya, KAYE is Primary Nurse. zb 16:09 Patient placed in an exam room, on a stretcher. ll1 16:12 Patient has correct armband on for positive identification. Placed in gown. Bed in low zb position. Call light in reach. medical center representative on. Pulse ox on. NIBP on. Door closed. Noise minimized. 16:13 Gutierrez Calvillo PA is PHCP. [facility] 16:13 Yeyo Caceres MD is Attending Physician. [facility] 18:54 CT Abd/Pelvis - IV Contrast Only In Process Unspecified. EDMS 19:57 Sander Cross MD is Referral Physician. [facility] 20:00 No provider procedures requiring assistance completed. IV discontinued, intact, zb bleeding controlled, No redness/swelling at site. Pressure dressing applied. Administered Medications: 17:57 Drug: Zofran (Ondansetron) 4 mg Route: IVP; Site: left antecubital; zb 18:10 Follow up: Response: No adverse reaction zb 17:58 Drug: morphine 4 mg {Note: RASS 0.} Route: IVP; Site: left antecubital; zb 18:20 Follow up: Response: No adverse reaction; Pain is decreased; RASS: Alert and Calm (0) zb Outcome: 19:57 Discharge ordered by . [facility] 20:00 Discharged to home ambulatory, with family. zb 20:00 Condition: stable 20:00 Discharge instructions given to patient, family, Instructed on discharge instructions, follow up and referral plans. Demonstrated understanding of instructions, follow-up care. 20:07 Patient left the ED. zb Signatures: Dispatcher [employer] EDPR Gutierrez Calvillo PA PA [facility] Rubi Davalos ds1 Britta Gastelum RN RN ll1 Graciela Pandya RN RN zb Corrections: (The following items were deleted from the chart) 20:07 20:00 Discharge instructions given to patient, family, Instructed on discharge zb instructions, follow up and referral plans. medication usage, Demonstrated understanding of instructions, follow-up care, medications, zb
--- NOTE | 2020-11-06 19:58 | EDPHYS ---
Physician Documentation [facility] Name: Akosua Ludwig Age: 55 yrs Sex: Female : 1965 Arrival Date: 11/06/2020 Time: 12:53 Bed 24 Private MD: ED Physician Yeyo Caceres HPI: 11/06 16:27 This 55 yrs old Black Female presents to ER via Ambulatory with complaints of Leg Pain, jmm Back Pain, Urinary Frequency. 16:27 The patient presents with abdominal pain. Onset: The symptoms/episode began/occurred jmm gradually, 4 day(s) ago. The symptoms radiate to pelvis. Associated signs and symptoms: Pertinent negatives: fever. The symptoms are described as achy. Modifying factors: The symptoms are alleviated by nothing, the symptoms are aggravated by nothing. This is a 55 year old female with a history of celiac disease that presents to the ED with complaints of right flank pain, increased urgency, RA beginning approx 4 days ago. Denies fever, vomiting, lack of appetite, diarrhea. Historical: - Allergies: 13:01 Aspirin; ll1 13:01 Gluten Protein; ll1 - PMHx: 13:01 celiac disease; Kidney stones; Rheumatoid Arthritis; ll1 - PSHx: 13:01 Thyroidectomy; Hysterectomy; Tonsillectomy; Tubal ligation; Tummy tuck; ll1 - Immunization history:: Flu vaccine is up to date. - Social history:: Smoking status: Patient denies any tobacco usage or history of. ROS: 16:27 Constitutional: Negative for fever, chills, and weight loss, Cardiovascular: Negative jmm for chest pain, palpitations, and edema, Respiratory: Negative for shortness of breath, cough, wheezing, and pleuritic chest pain. 16:27 Abdomen/GI: Positive for abdominal pain. 16:27 : Positive for urinary symptoms. 16:27 All other systems are negative. Exam: 16:27 Head/Face: atraumatic. Eyes: EOMI, no conjunctival erythema appreciated ENT: Moist jmm Mucus Membranes Neck: Trachea midline, Supple Chest/axilla: Normal chest wall appearance and motion. Cardiovascular: Regular rate and rhythm. No edema appreciated Respiratory: Normal respirations, no respiratory distress appreciated 16:27 Back: Normal ROM Skin: General appearance color normal MS/ Extremity: Moves all extremities, no obvious deformities appreciated, no edema noted to the lower extremities Neuro: Awake and alert, normal gait Psych: Behavior is normal, Mood is normal, Patient is cooperative and pleasant 16:27 Constitutional: The patient appears in no acute distress, alert, awake. 16:27 Abdomen/GI: Inspection: abdomen appears normal, Bowel sounds: normal, Palpation: soft, mild abdominal tenderness, in the suprapubic area and right lower quadrant. Vital Signs: 12:58 BP 135 / 79; Pulse 86; Resp 17; Temp 97.3; Pulse Ox 98% ; Weight 78.02 kg; Height 5 ft. ll1 5 in. (165.10 cm); Pain 7/10; 16:05 BP 150 / 102; Pulse 73; Resp 16; Pulse Ox 100% on R/A; zb 18:02 BP 141 / 80; Pulse 64; Resp 19; Pulse Ox 97% on R/A; zb 19:00 BP 142 / 79; Pulse 68; Resp 16; Pulse Ox 100% on R/A; zb 12:58 Body Mass Index 28.62 (78.02 kg, 165.10 cm) ll1 MDM: 16:51 Patient medically screened. [facility] 19:55 Data reviewed: vital signs, nurses notes. Counseling: I had a detailed discussion with isaac the patient and/or guardian regarding: the historical points, exam findings, and any diagnostic results supporting the discharge/admit diagnosis, lab results, radiology results, the need for outpatient follow up, to return to the emergency department if symptoms worsen or persist or if there are any questions or concerns that arise at home. Refusal of service: The patient/guardian displays adequate decision making capability and despite a detailed discussion of alternatives, benefits, risks, and consequences refuses: Admission to the hospital for further work-up and treatment. ED course: Labs, ct scan discussed with the patient. Patient declined admission but states she will return to the ED if pain increases or if she has any further concerns. . 11/06 16:27 Order name: Urine Dipstick-Ancillary; Complete Time: 16:54 EDWV 11/06 16:29 Order name: Urine --Ancillary (enter results); Complete Time: 16:54 em1 11/06 16:54 Order name: Basic Metabolic Panel; Complete Time: 18:29 [facility] 11/06 16:54 Order name: CBC with Diff; Complete Time: 18:14 [facility] 11/06 16:54 Order name: Hepatic Function; Complete Time: 18:29 [facility] 11/06 16:54 Order name: Lipase; Complete Time: 18:29 [facility] 11/06 16:54 Order name: IV Saline Lock; Complete Time: 17:58 [facility] 11/06 16:54 Order name: Labs collected and sent; Complete Time: 17:58 [facility] 11/06 17:00 Order name: CT Abd/Pelvis - IV Contrast Only; Complete Time: 19:19 [facility] Administered Medications: 17:57 Drug: Zofran (Ondansetron) 4 mg Route: IVP; Site: left antecubital; zb 18:10 Follow up: Response: No adverse reaction zb 17:58 Drug: morphine 4 mg {Note: RASS 0.} Route: IVP; Site: left antecubital; zb 18:20 Follow up: Response: No adverse reaction; Pain is decreased; RASS: Alert and Calm (0) zb Disposition: 11/07 19:09 Co-signature as Attending Physician, Yeyo Caceres MD. rn Disposition: 11/06/20 19:57 Discharged to Home. Impression: Abdominal and pelvic pain. - Condition is Stable. - Discharge Instructions: Abdominal Pain, Adult, Pelvic Pain, Female. - Medication Reconciliation Form, Thank You Letter, Antibiotic Education, Prescription Opioid Use form. - Follow up: Sander Cross MD; When: 2 - 3 days; Reason: Recheck today's complaints, Continuance of care, Re-evaluation by your physician. Signatures: Dispatcher [employer] EDMS Gutierrez Calvillo PA PA Yeyo Allen MD MD rn Lewis, Lynsay, RN RN ll1 Graciela Pandya RN RN zb Corrections: (The following items were deleted from the chart) 11/06 20:07 19:57 11/06/2020 19:57 Discharged to Home. Impression: Abdominal and pelvic pain. zb Condition is Stable. Forms are Medication Reconciliation Form, Thank You Letter, Antibiotic Education, Prescription Opioid Use. Follow up: Sander Cross; When: 2 - 3 days; Reason: Recheck today's complaints, Continuance of care, Re-evaluation by your physician. [facility]
[2020-11-06 20:52] VITALS: TEMP 97.3
[2020-11-06 20:56] VITALS: BP 142/79; O2SAT 100
== END 2020-11-06 20:07 | disposition home or self-care (01) ==
LOC: ER 12:51
DX: R10.2 Pelvic and perineal pain (principal); Z88.6 Allergy status to analgesic agent; Z91.02 Food additives allergy status
CPT/HCPCS: 85025; 80048; 36415; 81025; 80076; 81003; 83690; 74177; 96375; 96374; 99284; Q9967; J2405

== ENCOUNTER 2021-10-30 17:35 | Emergency (ER) | payer BC ==
--- OUTSIDE RECORDS SUMMARY | 2021-10-30 17:38 | XMS REPORT | Clinical Summary ---
:1965 Author Organization [facility] Address [address] [place] [address] Care Team Providers Name Role Phone Keshia Daugherty NP Unavailable Gabi Beauchamp Unavailable Bev Rodgers MD Unavailable Asuncion Daugherty NP Primary Care Provider Allergies Active Allergy Reactions Severity Noted Date Comments Aspirin 11/03/2015 Upset stomach Medications Medication Sig Dispensed Refills Start Date End Date Status levothyroxine Take 75 mcg by mouth 0 Active (SYNTHROID, daily. LEVOTHROID) 75 mcg tablet B-complex with Take 1 tablet by 0 Active vitamin C tablet mouth daily. celecoxib (CeleBREX) Take 200 mg by mouth 12 05/01/20 16 Active 200 mg capsule daily. pantoprazole Take 40 mg by mouth 0 05/12/2016 Active (PROTONIX) 40 mg EC daily. tablet turmeric (CURCUMIN by miscellaneous 0 Active MISC) route daily. cholecalciferol, Take 2,000 Units by 0 Active vitamin D3, (VITAMIN mouth daily. D3) 2,000 units tab tablet amLODIPine (NORVASC) TAKE 1 TABLET BY 0 08/16/2020 Active 5 mg tablet MOUTH EVERY DAY magnesium 250 mg tab Take by mouth. 0 Active mecobalamin, vitamin Chew. 0 Active B12, 1,000 mcg chew UNABLE TO FIND Med Name: GI 0 Ac tive Natural/ Total Digestive Wellness UNABLE TO FIND Med Name: Tonny Med 0 Active Syrup 250mg multivit-minerals/fo Take by mouth. 0 Active lic acid (CENTRUM MULTIGUMMIES ORAL) Active Problems Problem Noted Date Osteoporosis 06/09/2017 Tubular adenoma of colon 11/08/2015 Overview: Pathology reviewed from the colonoscopy I performed in October 2015 2 tubular adenomas removed Results released to patient Next exam due in 5 years Follow up with referring team MIKA CHRISTIANSON MD Gastroenterology, Hepatology & Nutrition Mixed connective tissue disease 06/09/2008 Hypothyroidism Hypertension Encounters Date Type Specialty Care Team Description 04/23/2021 Anesthesia Event Endoscopy Cain Carcamo MD 04/23/2021 Surgery Endoscopy ALE Tsai MD FLEXIBLE COLONOSCOPY PROXIMAL TO SPLENIC FLEXURE 04/23/2021 Hospital Encounter Endoscopy Zoe Correa Annamarie nomatous polyp MD Bree of colon 04/23/2021 Travel 04/20/2021 Clinical Support Keshia Howell Encounter f or ANILA Roland observation for Greta Leivn, other maida jame RN exposure to biological agen t ruled out (Prim daniela Dx) 04/20/2021 Travel 04/19/2021 Ancillary Procedure Radiology Cain Carcamoo nosalbert Buckley MD planned 04/19/2021 Travel 02/28/2021 Orders Only Endoscopy Arianna Gan RN planned (Primar y Dx) 02/28/2021 Orders Only Endoscopy Arianna Gan RN planned (Primar y Dx) 02/08/2021 Telemedicine GastroenterZoe mathew Tubu lar adenoma of colon (Primary Dx); Hepatology & MD Bree Screening colon oscopy; Nutrition Personal histor y of colonic polyp 02/08/2021 Prep for Surgery Zoe Coles, Adenomatous polyp Hepatology & MD Bree of colon (Prima ry Nutrition Dx) 02/05/2021 Documentation Thoracic Surgery Jazmin Downing RN after 10/30/2020 Immunizations Name Administration Dates Next Due Moderna SARS-CoV-2 Vaccination 09/11/2020, 08/17/2020 Surgical History Surgery Date Site/Laterality Comments TONSILLECTOMY SD COLONOSCOPY FLX DX W/COLLJ 11/03/2015 N/A Pr ocedure: DIAGNOSTIC SPEC WHEN PFRMD FLEXIBLE COLONOS COPY PROXIMAL TO SPLE CHIRAG FLEXURE; Surgeo n: Mika Christianson MD; Location: MAIN E NDOSCOPY; Service: GASTROE NTEROLOGY TOTAL ABDOMINAL HYSTERECTOMY 09/08/2011 - for benign fibroids W/ BILATERAL 10/07/2011 SALPINGOOPHORECTOMY THYROIDECTOMY 08/08/2015 - Right for the right go iter - 09/07/2015 benign KIDNEY STONE SURGERY 03/09/2017 - 04/08/2017 ABDOMINOPLASTY 01/18/2020 SD COLONOSCOPY FLX DX W/COLLJ 04/23/2021 N/A Pr ocedure: DIAGNOSTIC SPEC WHEN PFRMD FLEXIBLE COLONOS COPY PROXIMAL TO SPLE CHIRAG FLEXURE; Ethano n: Bree grant MD; Location: [facility] END[facility]COPY; Serv ice: GASTROENTEROLOGY Medical History Medical History Date Comments Thyroid nodule Goiter Mixed connective tissue disease 2008 Personal history of kidney stones 2016 Hypothyroidism Osteoporosis 2018 SARS-CoV-2 vaccination 08/17/2020 09/11/2020 Modern a Hypertension Family History Medical History Relation Name Comments Lung cancer Father was a smoker -Breast cancer Maternal Grandmother Uterine cancer Mother mets to lung and brain in her 60s, age 83 Relation Name Status Comments Father Maternal Grandmother Mother Social History Tobacco Use Types Packs/Day Years Used Date Never Smoker Smokeless Tobacco: Never Used Alcohol Use Standard Drinks/Week Comments Yes 2 (1 standard drink = 0.6 oz pure alcoho l) per month Alcohol Habits Answer Date Recorded How often do you have a drink containing alcohol? Not asked How many drinks containing alcohol do you have on a typical Not asked day when you are drinking? How often do you have six or more drinks on one occasion? No t asked Comment: per month 11/03/2015 Sex Assigned at Date Recorded Not on file Job Start Date Occupation Industry Not on file Not on file Not on file Obstetrics History Para Term AB IAB SAB Ectopic Multiple Living Live Births 2 2 Date Outcome GA Total Labor/2nd/3rd Weight Sex Delivery Anes PTL Jennyfer A 1 A5 Name Clin Labor Para Para Comments Menarche: 12 Age of Menopause: 48 Age of Parity: 19 The patient took control pills for 5 years. The patient never used hormone replaceme nt therapy Last Filed Vital Signs Vital Sign Reading Time Taken Comments Blood Pressure 123/72 04/23/2021 12:40 PM SEMICONDUCTOR ENGINEER Pulse 65 04/23/2021 12:40 PM SEMICONDUCTOR ENGINEER Temperature 36.7 C (98.1 F) 04/23/2021 12:30 PM SEMICONDUCTOR ENGINEER Respiratory Rate 18 04/23/2021 12:40 PM SEMICONDUCTOR ENGINEER Oxygen Saturation 100% 04/23/2021 12:40 PM SEMICONDUCTOR ENGINEER Inhaled Oxygen Concentration - - Weight 76.2 kg (167 lb 15.9 oz) 04/23/2021 10:36 AM SEMICONDUCTOR ENGINEER Height - - Body Mass Index 31.51 09/25/2020 1:36 PM CDT Plan of Treatment Health Maintenance Due Date Last Done Comments COVID-19 Vaccination (3 - Booster) 02/11/2021 09/11/2020, 0 08/17/2020 Procedures Procedure Name Priority Date/Time Associated Comments Diagnosis PATHOLOGY BIOPSY Routine 04/23/2021 11:50 Adenomatous polyp Re sults for this INTERPRETATION AM SEMICONDUCTOR ENGINEER of colon procedure are in the results section. DIAGNOSTIC FLEXIBLE 04/23/2021 11:23 Adenomatous polyp COLONOSCOPY PROXIMAL TO AM SEMICONDUCTOR ENGINEER of colon SPLENIC FLEXURE Case Notes RSC x2 03/05/2021 COVID-19 (SARS-COV-2) Routine 04/20/2021 10:46 Encounter for R esults for this PCR-ASYMPTOMATIC MC AM SEMICONDUCTOR ENGINEER observation for jenaro madden are in other suspected the results exposure to section. biological agent ruled out XR SPINE CERVICAL Routine 04/19/2021 12:57 Colonoscopy planned Results for this COMPLETE 4 OR 5 VW PM SEMICONDUCTOR ENGINEER procedure are in the results section. .GLOMERULAR FILTRATION Routine 04/19/2021 12:[address] anned Results for this RATE PM SEMICONDUCTOR ENGINEER procedure are i n the results section. SERUM CREATININE Routine 04/19/2021 12:23 Colonoscopy planned Results for this PM SEMICONDUCTOR ENGINEER procedure are i n the results section. MANUAL DIFFERENTIAL Routine 04/19/2021 12:23 Colonoscopy plann ed Results for this PM SEMICONDUCTOR ENGINEER procedure are i n the results section. Results CBC Routine 04/19/2021 12:23 Colonoscopy planned Resu lts for this PM SEMICONDUCTOR ENGINEER procedure are i n the results section. GLUCOSE, RANDOM Routine 04/19/2021 12:23 Colonoscopy planned R esults for this PM SEMICONDUCTOR ENGINEER procedure are i n the results section. ELECTROLYTE PANEL Routine 04/19/2021 12:23 Colonoscopy planned Results for this PM SEMICONDUCTOR ENGINEER procedure are i n the results section. SERUM CREATININE Routine 04/19/2021 12:23 Colonoscopy planned PM SEMICONDUCTOR ENGINEER BLOOD UREA NITROGEN Routine 04/19/2021 12:23 Colonoscopy plann ed Results for this PM SEMICONDUCTOR ENGINEER procedure are i n the results section. COMPLETE BLOOD COUNT W/ Routine 04/19/2021 12:23 Colonoscopy p lanned DIFFERENTIAL PM SEMICONDUCTOR ENGINEER after 10/30/2020 Results Pathology Biopsy Interpretation (04/23/2021 11:50 AM SEMICONDUCTOR ENGINEER) Component Value Ref Test Analysis Performed Pathologis t Range Method Time At Signature Submitted Adenomatous polyp 04/26/2021 [facility] Clinical of colon [D12.6] 2:21 PM History SEMICONDUCTOR ENGINEER Diagnosis A. Colon, descending, polyp, biopsy: [facility] Electronically Hyperplastic polyp. 2:21 PM signed by Janice Parson CST on 04/26/2021 at 2:21 PM Gross A: 04/26/2021 [facility] Description colon, 1. descending colon polyp: Consists of 1 pale-lehman slightly polypoid fragment of tissue measuring 0.3 cm in greatest dimension, entirely submitted in A1. ES 2:21 PM SEMICONDUCTOR ENGINEER Biomarker N/A 04/26/2021 [facility] Block(s) 2:21 PM SEMICONDUCTOR ENGINEER Disclaimer "Some tests 04/26/2021 [facility] reported here may 2:21 PM have been SEMICONDUCTOR ENGINEER developed and performance characteristics determined by [facility] Pathology and Laboratory Medicine. These tests have not been specifically cleared or approved by the U.S. Food and Drug Administration. If applicable, controls were reviewed and showed appropriate reactivity." Specimen Anatomical Collection Method Collection Time Receive d Time (Source) Location / / Volume Laterality Tissue (Colon) 04/23/2021 11:50 1 AM SEMICONDUCTOR ENGINEER 8:11 AM SEMICONDUCTOR ENGINEER Bree Correa MD LAB PATHOLOGY ORDERABLES Performing Organization Address City/State/ZIP Code Phon e Number [facility] [place] [address] [address] COVID-19 (SARS-CoV-2) PCR-Asymptomatic MC (04/20/2021 10:46 AM SEMICONDUCTOR ENGINEER) Patholo gist Method Time Signature COVID19 (SARS Not Detected Not Detected [place] CoV-2) [facility] Comment: This test is a qualitative reverse-trans criptase polymerase chain reaction (RT- PCR) developed for the Myra CAMI 6800 system and intended for qualitative detection of SARS CoV-2 RNA in nasopharyngeal a nd oropharyngeal swab specimens collecte d from any individuals, including those suspected o f COVID-19 by their healthcare provider, and those without symptoms or other reasons to suspect COVID-19. A fact sheet for patients provided by the ball mill operator ( [employer]) can be rev iewed at: https://www.fda.gov/media/334480/downloa d. A fact sheet for Health Care providers is provided by the ball mill operator ([employer]) and can be reviewed at: https://www.fda.gov/media/687039/download Results must be interpreted within the c ontext of all relevant clinical and laboratory findings and should not form the sole basis for a diagnosis or treatment decision. Positive results do not rule out bacterial infection or co- infection with other viruses. Negative results do not rule ou t SARS-CoV-2 and must be combined with clinical observations, patient history, and/or epidemiological information. "Presumptive Positive" results are due t o partial amplification of SARS-CoV-2 targets and indicates low amounts of virus present in the specimen at or near the limit of detection. Regardless, individuals with "Presumptive Positive" results should be managed per institutional guidelines as individuals positive for SARS-CoV-2 virus, including use of appropriate infection control protocols. Internal controls are included to assess for possible amplification inhibitors. If inhibition is detected, testing is repeated and if inhibition is confirmed the specimen is resulted as "Invalid". When an "Invalid" result occurs, it is recomm ended to wait 3 days before submitting a new spec imen for testing if clinically indicated. This assay has been approved by the FDA for use only under Emergency Use Authorization (EUA) in laboratories that have been CLIA-certified to perform moderate-complexity and high-complexity tests. The performance characteristics of this assay were verified by the [facility], CLIA Accreditation #: [id number] and CAP Accreditation #: [id number]. COVID19 SARS Source FLAT SURFACER JEWEL Swab [place] MD [facility] COVID19 SARS Indication Pre-Out of OR Procedure [facility] Specimen (Source) Anatomical Collection Method Collection Time Re ceived Time Location / / Volume Laterality Nasopharyngeal Swab 04/20/2021 10:46 04/09 AM SEMICONDUCTOR ENGINEER 12:00 PM SEMICONDUCTOR ENGINEER Bree Correa MD MICROBIOLOGY - GENERAL ORD ERABLES Performing Organization Address City/State/ZIP Code Phon e Number [facility] Unless otherwise noted, [place] [address] [place] all lab tests performed by: Division of Pathology and Laboratory Medicine [address] [facility] XR Spine Cervical Complete 4 or 5 Views (04/19/2021 12:57 PM SEMICONDUCTOR ENGINEER) Anatomical Region Laterality Modality C-spine Digital Radiography Specimen (Source) Anatomical Collection Method Collection Time Re ceived Time Location / / Volume Laterality 04/19/2021 1:40 PM SEMICONDUCTOR ENGINEER Impressions 04/19/2021 1:42 PM SEMICONDUCTOR ENGINEER Straightening of the cervical spine. No evidence of atlantoaxial instability. Narrative 04/19/2021 1:42 PM SEMICONDUCTOR ENGINEER FULL RESULT: Examination: XR SPINE CERVICAL COMPLETE 4 OR 5 VW, 04/19/2021 12:57 PM. Clinical History: Colonoscopy planned Indication: H/O Rheumatoid Arthritis Comparison: None Technique: XR SPINE CERVICAL COMPLETE 4 OR 5 VW Findings: 1. 8 images of the cervical spine with o blique views. 2. No features diagnostic of rheumatoid arthritis in the cervical spine. 3. Minimal spur formation at C5/C6 with straightening of the cervical spine. Uncinate spurs are also present at this level. 4. No evidence of atlantoaxial instabili ty. Procedure Note Jay Gaspar Jr., MD - 04/19/2021F ormatting of this note might be different from the original. FULL RESULT: Examination: XR SPINE CERVICAL COMPLETE 4 OR 5 VW, 04/19/2021 12:57 PM. Clinical History: Colonoscopy planned Indication: H/O Rheumatoid Arthritis Comparison: None Technique: XR SPINE CERVICAL COMPLETE 4 OR 5 VW Findings: 1. 8 images of the cervical spine with o blique views. 2. No features diagnostic of rheumatoid arthritis in the cervical spine. 3. Minimal spur formation at C5/C6 with straightening of the cervical spine. Uncinate spurs are also present at this level. 4. No evidence of atlantoaxial instabili ty. IMPRESSION: Straightening of the cervical spine. No evidence of atlantoaxial instability. Cain Carcmao MD IMG DIAGNOSTIC IMAGING ORDER TAVARES Glucose, Random (04/19/2021 12:23 PM SEMICONDUCTOR ENGINEER) athologist Signature Glucose Random 88 70 - 199 [place] mg/dL Comment: Effective 01/03/16, the glucose reference intervals have been updated based on [place] [employer] guidelines (Standards of Medical Care in Diabetes 2016. Diabetes Care 2016; 39: S13-S22) Fasting blood glucose: Normal: 70-99 mg/dL Impaired fasting glucose (increased risk for diabetes or pre-diabetes): 100-125 mg/dL Diabetes mellitus: >/= 126 mg/dL Random blood glucose: Normal: 70-199 mg/dL Note: Random glucose >100 mg/dL is assoc iated with increased risk for diabetes Testing performed at [facility], [address] [place] [address] Specimen Anatomical Collection Method Collection Time Receive d Time (Source) Location / / Volume Laterality Blood 04/19/2021 12:23 04/19/2021 PM SEMICONDUCTOR ENGINEER 12:24 PM SEMICONDUCTOR ENGINEER Cain Carcamo MD LAB BLOOD ORDERABLES Performing Organization Address City/State/ZIP Code Phon e Number [address] .Serum Creatinine (04/19/2021 12:23 PM SEMICONDUCTOR ENGINEER) athologist Signature Creatinine 0.90 0.51 - 0.95 [place] mg/dL Comment: Testing performed at [facility], [address] [place] [address] Specimen Anatomical Collection Method Collection Time Receive d Time (Source) Location / / Volume Laterality Blood 04/19/2021 12:23 04/19/2021 PM SEMICONDUCTOR ENGINEER 12:24 PM SEMICONDUCTOR ENGINEER Cain Carcamo MD LAB BLOOD ORDERABLES Performing Organization Address City/State/ZIP Code Phon e Number [address] (ABNORMAL) .CBC (04/19/2021 12:23 PM SEMICONDUCTOR ENGINEER) athologist Signature WBC 6.0 4.0 - 11.0 [place] K/uL Comment: All components of the CBC perfo rmed at [facility], [address] [place] [address], [place] [address] RBC 4.76 4.00 - 5.50 M/uL [place] Comment: All components of the CBC perfo rmed at [facility], [address] [place] [address], [place] [address] Hgb 13.8 12.0 - 16.0 gm/dL [place] Comment: As part of CBC or as an individ ual orderable testing performed at [facility], [address] [place] [address], [place] [address] Hct 42.4 37.0 - 47.0 % [place] Comment: As part of CBC testing performe d at [facility], [address] [place] [address], [place] [address] MCV 89 82 - 98 fL [place] Comment: As part of CBC testing performe d at [facility], [address] [place] [address], [place] [address] MCH 29.0 27.0 - 31.0 pg [place] Comment: As part of CBC testing performe d at [facility], [address] [place] [address], [place] [address] MCHC 32.5 31.0 - 36.0 gm/dL [place] Comment: As part of CBC testing performe d at [facility], [address] [place] [address] RDW-SD 46.9 (H) 35.1 - 46.3 fL [place] Comment: As part of CBC testing performe d at [facility], [address] [place] [address] RDW-CV 14.2 12.0 - 15.5 % [place] Comment: As part of CBC testing performe d at [facility], [address] [place] [address], [place] [address] Platelet count 252 140 - 440 K/uL [facility] Comment: As part of CBC or an individual orderable testing performed at [facility], [address] [place] [address], [place] [address] MPV 9.8 4.0 - 10.4 fL [place] Comment: As part of CBC testing performe d at [facility], [address] [place] [address], [place] [address] Specimen Anatomical Collection Method Collection Time Receive d Time (Source) Location / / Volume Laterality Blood 04/19/2021 12:23 04/19/2021 PM SEMICONDUCTOR ENGINEER 12:24 PM SEMICONDUCTOR ENGINEER Cain Carcamo MD LAB BLOOD ORDERABLES Performing Organization Address City/State/ZIP Code Phon e Number [facility] [place] [address] [place] [address] Glomerular Filtration Rate (04/19/2021 12:23 PM SEMICONDUCTOR ENGINEER) athologist Signature eGFR-AA 82 >=60 [place] mL/min/1.73 sq. m Comment: Normal eGFR >= 60 mL/min/1.73 m2 Note: The eGFR is calculated using the C KD-EPI equation. The eGFR declines with age. eGFR <60 mL/min/1.73 m2 is considered as "decreased". This equation should only be used for patients 18 and older. According to the National Kidney Foundat ion's Kidney Disease Outcome Quality Initiative (KDOQI) classification and 2012 Kidney Disease Improving Global Outcomes (KDIGO) Clinical Practice Guideline, the stage of CKD should be categorized based on estimated GFR. Stage Description GFR mL/min/1. 73 m2 1 Normal or high GFR >=90 2 Mildly decreased GFR 60-89 3a Mildly to moderately decreased GFR 45-59 3b Moderately to severely decreased GFR 30-44 4 Severely decreased GFR 15-29 5 Kidney failure <15 Testing performed at [facility], [address] [place] [address], [place] [address] eGFR-VIELKA 71 >=60 mL/min/1.73 sq. m [place] Comment: Normal eGFR >= 60 mL/min/1.73 m2 Note: The eGFR is calculated using the C KD-EPI equation. The eGFR declines with age. eGFR <60 mL/min/1.73 m2 is considered as "decreased". This equation should only be used for patients 18 and older. According to the National Kidney Foundat ion's Kidney Disease Outcome Quality Initiative (KDOQI) classification and 2012 Kidney Disease Improving Global Outcomes (KDIGO) Clinical Practice Guideline, the stage of CKD should be categorized based on estimated GFR. Stage Description GFR mL/min/1. 73 m2 1 Normal or high GFR >=90 2 Mildly decreased GFR 60-89 3a Mildly to moderately decreased GFR 45-59 3b Moderately to severely decreased GFR 30-44 4 Severely decreased GFR 15-29 5 Kidney failure <15 Testing performed at [facility], [address] [place] [address] Specimen Anatomical Collection Method Collection Time Receive d Time (Source) Location / / Volume Laterality Blood 04/19/2021 12:23 04/19/2021 PM SEMICONDUCTOR ENGINEER 12:24 PM SEMICONDUCTOR ENGINEER Cain Carcamo MD LAB BLOOD ORDERABLES Performing Organization Address City/State/ZIP Code Phon e Number [place], [place] [id number] [place] [address] (ABNORMAL) Differential (04/19/2021 12:23 PM SEMICONDUCTOR ENGINEER) athologist Signature Neutrophil % 40.9 (L) 42.0 - [place] 66.0 % Comment: All components of the Different ial performed at [facility], [address] [place] [address] Lymphocyte % 49.4 (H) 24.0 - 44.0 % [place] Comment: As part of the Differential tanisha ting performed at [facility], [address] [place] [address] Monocyte % 6.0 2.0 - 7.0 % [place] Comment: As part of the Differential tanisha ting performed at [facility], [address] [place] [address] Eosinophil % 3.0 1.0 - 4.0 % [place] Comment: As part of the Differential tanisha ting performed at [facility], [address] [place] [address] Basophil % 0.5 0.0 - 1.0 % [place] Comment: As part of the Differential tanisha ting performed at [facility], [address] [place], [place] [id number] IGRE % 0.2 0.0 - 0.4 % [place] Comment: IGRE % count includes Metamyelocytes, My elocytes, and Promyelocytes. As part of the Differential testing perf ormed at [facility], [address] [place] [address], [place] [address] Neutrophil Abs 2.46 1.70 - 7.30 K/uL [facility] Comment: As part of the Differential tanisha ting performed at [facility], [address] [place] [address] Lymphocyte Abs 2.97 1.00 - 4.80 K/uL [facility] Comment: As part of the Differential tanisha ting performed at [facility], [address] [place] [address] Monocyte Abs 0.36 0.08 - 0.70 K/uL [facility] Comment: As part of the Differential tanisha ting performed at [facility], [address] [place] [address] Eosinophil Abs 0.18 0.04 - 0.40 K/uL [facility] Comment: As part of the Differential tanisha ting performed at [facility], [address] [place] [address] Basophil Abs 0.03 0.00 - 0.10 K/uL [facility] Comment: As part of the Differential tanisha ting performed at [facility], [address] [place] [address] IG Abs 0.01 0.00 - 0.04 K/uL [place] Comment: As part of the Differential tanisha ting performed at [facility], [address] [place] [address] Specimen Anatomical Collection Method Collection Time Receive d Time (Source) Location / / Volume Laterality Blood 04/19/2021 12:23 04/19/2021 PM SEMICONDUCTOR ENGINEER 12:24 PM SEMICONDUCTOR ENGINEER Cain Carcamo MD LAB BLOOD ORDERABLES Performing Organization Address City/State/ZIP Code Phon e Number [address] BUN (04/19/2021 12:23 PM SEMICONDUCTOR ENGINEER) athologist Signature BUN 16 6 - 23 mg/dL [place] Comment: Testing performed at [facility], [address] [place] [address] Specimen Anatomical Collection Method Collection Time Receive d Time (Source) Location / / Volume Laterality Blood 04/19/2021 12:23 04/19/2021 PM SEMICONDUCTOR ENGINEER 12:24 PM SEMICONDUCTOR ENGINEER Cain Carcamo MD LAB BLOOD ORDERABLES Performing Organization Address City/State/[place] [address] [place] [address] Electrolyte Panel (04/19/2021 12:23 PM SEMICONDUCTOR ENGINEER) athologist Signature Sodium Lvl 138 136 - 145 [place] mEq/L Comment: Testing performed at [facility], [address] [place] [address] Potassium Lvl 4.4 3.5 - 5.1 mEq/L [facility] Y Comment: Testing performed at [facility], [address] [place] [phone] Chloride 104 98 - 107 mEq/L [place] Comment: Testing performed at [facility], [address] [place] [id number] CO2 25 22 - 29 mEq/L [place] Comment: Testing performed at [facility], [address] [place] [id number] Anion Gap 9 4 - 14 mEq/L [place] Comment: Testing performed at [facility], [address] [place] [id number] Specimen Anatomical Collection Method Collection Time Receive d Time (Source) Location / / Volume Laterality Blood 04/19/2021 12:23 04/19/2021 PM SEMICONDUCTOR ENGINEER 12:24 PM SEMICONDUCTOR ENGINEER Cain Carcamo MD LAB BLOOD ORDERABLES Performing Organization Address City/State/ZIP Code [place] [address] [place] [address] after 10/30/2020 Insurance Payer Benefit Plan / Subscriber ID Effective Dates Phone Addre ss Type Group [place] O [id number] 2017-Present PO KRISTIAN X [id number] O BLUE SHIELD BLUE/BLUE [facility] [id number] Care Teams Statistics Intern Relationship Specialty Start Date End Date Keshia Daugherty NP PCP - General Family Practice 12/29/[address] [place] [id number] Keshia Daugherty, ANILA Nurse Practitioner 08/16/[address] [place] [phone] Delaney Beauchamp PA Physician Service Desk Lead 08/16/[address] [place] [phone] Masha Rodgers MD Physician 08/16/[address] [place] [id number]
--- OUTSIDE RECORDS SUMMARY | 2021-10-30 17:39 | XMS REPORT | Continuity of Care Document ---
:1965 Author Organization [facility] t Address [address] [place] [address] Care Team Providers Name Role Phone [phone] Primary Care Physician Unavailable Janice Laird Attending Clinician Unavailable Franklin Noe MD Attending Clinician Zoe Morrison MD Attending Clinician ZOE MORRISON Attending Clinician Unavailable Ina Christy MD Attending Clinician As[facility] [place] NP Attending Clinician Ollie RESTREPO C Attending Clinician Unavailable [facility] [place] Attending Clinician Unavailable Ina CHRISTY Attending Clinician Unavailable Caitlyn Gan RN Attending Clinician Unavailable Deja Downing RN Attending Clinician Unavailable Ycdney RD Attending Clinician CYDNEY Attending Clinician Unavailable Medardo Fuentes DO Attending Clinician FRANKLIN NOE Attending Clinician Unavailable DOLLY Attending Clinician Unavailable Bev MARTÍNEZ Attending Clinician Unavailable ZOE MORRISON Admitting Clinician Unavailable Payers Payer Name Policy Type Policy Number Effective Date Expiration Date S ource Problems Condition Condition Condition Status Onset Resolution [...] Active Univers 5-21 ity of 00:00: [place] 00 Medical Branch Midline Midline Disease Active Univers low back low back 5- ity of pain pain 00:00: [place] without without 00 Medical sciatica, sciatica, Bran ch unspecifie unspecifie d d chronicity chronicity Lactose Lactose Disease Active Univers intoleranc intoleranc 5 it y of e e 00:00: [place] [facility] Osteoporos Osteoporos Disease Active M D is is 06-09 Anderso 00:00: n 00 Gastroesop Gastroesop Disease Active U nivers hageal hageal 1-23 ity of reflux reflux [...] Active Overview: adenoma of adenoma of 11-07 [facility] colon colon 00:00: g of this n 00 note might be different from the original. 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 06-09 it y of tissue tissue 00:00: [place] disease disease 00 Medical Branch Mixed Mixed Disease Active connective connective 06-09 An derso tissue tissue 00:00: n disease disease 00 Hypothyroi Hypothyroi Disease Active M D dism dism Anderso n Hypertensi Hypertensi Disease Active D on on Anderso n Allergies, Adverse Reactions, Alerts Allergy Allergy Status Severity Reaction(s) Onset Inactive Treating Comm ents Source Name Type Date Date Clinician ASPIRIN DRUG Active Med Other-Cmnt Unive rs INGREDI 6- ity of 00:00: [address] Aspirin Drug Active Other - See Upsets Univ ers Intolera comments 11-26 stomach ity o f nce 00:00: [place] [id number] Medical [place] Family History Family Member Diagnosis Comments Start Date Stop Date Source Natural father Lung cancer MD Wisdom on Maternal grandmother -Breast cancer MD Cage Natural mother Uterine cancer And servando Social History Social Habit Start Date Stop Date Quantity Comments Source History [facility] MD Cage Alcohol Frequency History [facility] MD Cage Alcohol Std Drinks History [facility] MD Cage Alcohol Binge Exposure to Not sure University of SARS-CoV-2 [place] [facility] (event) [place] Alcohol intake 2021-04-24 2021-04-24 Current drinker MD Nguyen nichole 00:00:00 00:00:00 of alcohol (finding) Tobacco use and 2017-12-29 2017-12-29 Smokeless tobacco MD Cage exposure 00:00:00 00:00:00 non-user History SDOH 2015-11-03 2015-11-03 per month MD Cage Alcohol Comment 00:00:00 00:00:00 History of 2010-11-26 Cigarette Smoker [facility] of tobacco use 00:00:00 [facility] Sex Ass[birth year] At [birth year] MD Wisdom on 00:00:00 00:00:00 Smoking Status Start Date Stop Date Source Former smoker 2020-06-19 00:00:00 2020-06-19 00:00:00 [facility] Never smoked tobacco MD Cage Medications Ordered Filled Start Stop Current Ordering Indication Dosage Frequency Signature Comments Components Source Medication Medication Date Date Medication? Clinician (SIG) Name Name CELECOXIB 2020-06 Yes [id number] TAKE 1 Un jesi 200 mg 2-30 CAPSULE BY ity of capsule 00:00: MOUTH DAILY [facility] Branch CELECOXIB 2020-06 Yes [id number] TAKE 1 Un jesi 200 mg 2-30 CAPSULE BY ity of capsule 00:00: MOUTH [place] DAILY [facility] CELECOXIB 2020-06 Yes [id number] TAKE 1 Un jesi 200 mg 2-30 CAPSULE BY ity of capsule 00:00: MOUTH [place] [facility] Branch CELECOXIB 2020-06 Yes [id number] TAKE 1 Un jesi 200 mg 1-30 CAPSULE BY ity of capsule 00:00: MOUTH 00 DAILY Medical Branch CELECOXIB 2020-06- No [id number] TAKE 1 U nivers 200 mg 1-30 12-30 CAPSULE BY ity of capsule 00:00: 00:00 MOUTH [place] 00 :00 DAILY Medical Branch levothyroxi 2020-06 Yes 75ug Take 75 MD ne 1-15 mcg by Hernan (SYNTHROID, 12:59: mouth n LEVOTHROID) 44 daily. 75 mcg tablet B-complex 2020-06 Yes 1{tbl} Take 1 MD with 1-15 tablet by Hernan vitamin C 12:59: mouth n tablet 44 daily. turmeric 2020-06 Yes by (CURCUMIN 1-15 miscellane Jer rso MISC) 12:59: ous route n 44 daily. cholecalcif 2020-06 Yes 2000U Take 2,000 desmond, 1-15 Units by Hernan vitamin D3, 12:59: mouth n (VITAMIN 44 daily. D3) 2,000 units tab tablet magnesium 2020-06 Yes Take by 250 mg tab 1-15 mouth. Anderso 12:59: n 44 mecobalamin 2020-06 Yes Chew. , vitamin 1-15 Andashley B12, 1,000 12:59: n mcg chew 44 UNABLE TO 2020-06 Yes Med Name: MD SANTIAGO 1-15 GI Anderso 12:59: Natural/ n 44 Total [facility] UNABLE TO 2020-06 Yes Med Name: MD SANTIAGO 1-15 Tonny Med Anderso 12:59: Syrup n 44 250mg multivit-mi 2020-06 Yes Take by nerals/foli 1-15 mouth. Artis o c acid 12:59: n (CENTRUM 44 MULTIGUMMIE S ORAL) PANTOPRAZOL Yes [id number] TAKE 1 Univers E 40 mg EC 9-01 TABLET BY ity of tablet 00:00: MOUTH DAILY Medical Branch PANTOPRAZOL Yes [id number] TAKE 1 Univers E 40 mg EC 9-01 TABLET BY ity of tablet 00:00: MOUTH DAILY Medical Branch PANTOPRAZOL Yes [id number] TAKE 1 Univers E 40 mg EC 9-01 TABLET BY ity of tablet 00:00: MOUTH [place] 00 DAILY Medical Branch PANTOPRAZOL Yes [id number] TAKE 1 Univers E 40 mg EC 9-01 TABLET BY ity of tablet 00:00: MOUTH [place] 00 DAILY Medical Branch PANTOPRAZOL 0 Yes [id number] TAKE 1 Univers E 40 mg EC 9-01 TABLET BY ity of tablet 00:00: MOUTH [place] 00 DAILY Medical Branch CELECOXIB Yes [id number] TAKE 1 Un jesi 200 mg 7-05 CAPSULE BY ity of capsule 00:00: MOUTH [place] 00 DAILY Medical Branch CELECOXIB 0 2020- No [id number] TAKE 1 U nivers 200 mg 7-05 11-30 CAPSULE BY ity of capsule 00:00: 00:00 MOUTH [place] 00 : DAILY Medical Branch CELECOXIB Yes RA TAKE 1 Univer s 200 mg 5-07 (rheumatoid CAPSULE BY ity of capsule 00:00: arthritis) MOUTH Mike as 00 DAILY Medical Branch CELECOXIB 2020- No RA TAKE 1 Unive rs 200 mg 4-07 05-07 (rheumatoid CAPSULE BY ity of capsule 00:00: 00:00 arthritis) M[place]TH [place] :00 DAILY Medical Branch amLODIPine Yes TAKE 1 MD (NORVASDeja) 5 3-10 TABLET BY And erso mg tablet 00:00: MOUTH n 00 EVERY DAY PANTOPRAZOL Yes Gastroesoph TAKE 1 Univers E 40 mg EC 3-08 ageal TABLET BY ity of tablet 00:00: reflux MOUTH [place] 00 disease DAILY Medical without Branch esophagitis PANTOPRAZOL 2020- No [id number] TAKE 1 Univers E 40 mg EC 3-08 09- TABLET BY ity of tablet 00:00: 00:00 MOUTH [place] 00 :00 DAILY Medical Branch Cholecalcif Yes Take by Un jesi desmond, 1-11 mouth. ity of Vitamin D3, 21:15: [place] (VITAMIN Medical D3) 50 mcg Branch (2,000 unit) tablet Magnesium Yes Take by Univ ers 250 mg Tab 1-11 mouth. ity of 21:15: [place] 37 Medical Branch mecobalamin Yes Take by Un jesi , vitamin 1-11 mouth. ity of B12, (B12 21:15: [place] ACTIVE) 37 Medical 1,000 mcg Branch Chew Cholecalcif 2020-0 Yes Take by Un jesi desmond, 1-11 mouth. ity of Vitamin D3, 21:15: [place] (VITAMIN 37 Medical D3) 50 mcg Branch (2,000 unit) tablet Magnesium 2020-0 Yes Take by Univ ers 250 mg Tab 1-11 mouth. ity of 21:15: [place] 37 Medical Branch mecobalamin 2020-0 Yes Take by Un jesi , vitamin 1-11 mouth. ity of B12, (B12 21:15: [place] ACTIVE) 37 Medical 1,000 mcg Branch Chew Cholecalcif 2020-0 Yes Take by Un jesi desmond, 1-11 mouth. ity of Vitamin D3, 15:15: [place] (VITAMIN 37 Medical D3) 50 mcg Branch (2,000 unit) tablet Magnesium 2020-0 Yes Take by Univ ers 250 mg Tab 1-11 mouth. ity of 15:15: [place] 37 Medical Branch mecobalamin 2020-0 Yes Take by Un jesi , vitamin 1-11 mouth. ity of B12, (B12 15:15: [place] ACTIVE) 37 Medical 1,000 mcg Branch Chew Cholecalcif 2020-0 Yes Take by Un jesi desmond, 1-11 mouth. ity of Vitamin D3, 15:15: [place] (VITAMIN 37 Medical D3) 50 mcg Branch (2,000 unit) tablet Magnesium 2020-0 Yes Take by Univ ers 250 mg Tab 1-11 mouth. ity of 15:15: [place] 37 Medical Branch mecobalamin 2020-0 Yes Take by Un jesi , vitamin 1-11 mouth. ity of B12, (B12 15:15: [place] ACTIVE) 37 Medical 1,000 mcg Branch Chew Cholecalcif 2020-0 Yes Take by Un jesi desmond, 1-11 mouth. ity of Vitamin D3, 15:15: [place] (VITAMIN 37 Medical D3) 50 mcg Branch (2,000 unit) tablet Magnesium 2020-0 Yes Take by Univ ers 250 mg Tab 1-11 mouth. ity of 15:15: [place] 37 Medical Branch mecobalamin 2020-0 Yes Take by Un jesi , vitamin 1-11 mouth. ity of B12, (B12 15:15: [place] ACTIVE) 37 Medical 1,000 mcg Branch Chew Cholecalcif 202-0 Yes Take by Un jesi desmond, 1-11 mouth. ity of Vitamin D3, 15:15: [place] (VITAMIN 37 Medical D3) 50 mcg Branch (2,000 unit) tablet Magnesium Yes Take by Univ ers 250 mg Tab 1-11 mouth. ity of 15:15: [place] 37 Medical Branch mecobalamin Yes Take by Un jesi , vitamin 1-11 mouth. ity of B12, (B12 15:15: [place] ACTIVE) 37 Medical 1,000 mcg Branch Chew levothyroxi Yes 75ug Take 75 Uni vers ne 75 mcg 1-08 mcg by ity of tablet 22:33: mouth [place] 05 every Medical morning. Branch levothyroxi Yes 75ug Take 75 Uni vers ne 75 mcg 1-08 mcg by ity of tablet 22:33: mouth [place] 05 every Medical morning. Branch levothyroxi Yes 75ug Take 75 Uni vers ne 75 mcg 1-08 mcg by ity of tablet 16:33: mouth [place] 05 every Medical morning. Branch levothyroxi Yes 75ug Take 75 Uni vers ne 75 mcg 1-08 mcg by ity of tablet 16:33: mouth [place] 05 every Medical morning. Branch levothyroxi Yes 75ug Take 75 Uni vers ne 75 mcg 1-08 mcg by ity of tablet 16:33: mouth [place] 05 every Medical morning. Branch levothyroxi Yes 75ug Take 75 Uni vers ne 75 mcg 1-08 mcg by ity of tablet 16:33: mouth [place] 05 every Medical morning. Branch pantoprazol 2015-06 Yes 40mg Take 40 mg e 2-04 by mouth Anderso (PROTONIX) 00:00: daily. n 40 mg EC 00 tablet celecoxib 2015-06 Yes 200mg Take 200 MD (CeleBREX) 1-23 mg by Anderso 200 mg 00:00: mouth n capsule 00 daily. Immunizations Ordered Immunization Filled Immunization Date Status Commen ts Source Name Name Dee SARS-CoV-2 2020-09-11 Completed MD And erson Vaccination 00:00:00 Dee SARS-CoV-2 2020-08-17 Completed MD And erson Vaccination 00:00:00 Vital Signs Vital Name Observation Time Observation Value Comments Source Systolic blood pressure 2021-04-23 18:40:00 123 mm[Hg] MD Cage Diastolic blood pressure 2021-04-23 18:40:00 72 mm[Hg] MD Cage Heart rate 2021-04-23 18:40:00 65 /min MD Miles taylor Respiratory rate 2021-04-23 18:40:00 18 /min MD Bev elias Oxygen saturation in 2021-04-23 18:40:00 100 /min MD Cage Arterial blood by Pulse oximetry Body temperature 2021-04-23 18:30:00 36.72 Jossie MD Bev elias Body weight 2021-04-23 16:36:00 76.2 kg MD Miles taylor BMI 2021-04-23 16:36:00 31.51 kg/m2 MD Miles taylor Procedures Procedure Date / Time Performed Performing Clinician [facility] e PATHOLOGY BIOPSY 2021-04-23 17:50:00 Zoe Morrison MD Milesdariana taylor INTERPRETATION Bree DIAGNOSTIC FLEXIBLE 2021-04-23 17:23:00 MD Nguyen Tsai derson COLONOSCOPY PROXIMAL TO Bree SPLENIC FLEXURE COVID-19 (SARS-COV-2) 2021-04-20 16:46:00 MD Niles Tsai PCR-ASYMPTOMATIC [facility] Bree XR SPINE CERVICAL COMPLETE 4 2021-04-19 18:57:49 Brittani Christy MD OR 5 VW COMPLETE BLOOD COUNT W/ 2021-04-19 18:23:00 Cain Christy MD DIFFERENTIAL BLOOD UREA NITROGEN 2021-04-19 18:23:00 Cain Christy MD SERUM CREATININE 2021-04-19 18:23:00 Cain Christy MD Jer rson ELECTROLYTE PANEL 2021-04-19 18:23:00 Cain Christy MD And erson GLUCOSE, RANDOM 2021-04-19 18:23:00 Cain Christy MD Miles son Results CBC 2021-04-19 18:23:00 Cain Christy MD Milesdariana taylor MANUAL DIFFERENTIAL 2021-04-19 18:23:00 Cain Christy MD SERUM CREATININE 2021-04-19 18:23:00 Cain Christy MD Jer rson .GLOMERULAR FILTRATION RATE 2021-04-19 18:23:00 Cain Christy MD Plan of Care Planned Activity Planned Date Details Comments Source Future Scheduled 2026-04-17 Screening for [facility] Test 00:00:00 malignant neoplasm of Medica l Branch colon (procedure) [code = 533204769] Future Scheduled 2026-04-17 Screening for [facility] Test 00:00:00 malignant neoplasm of Medica l Branch colon (procedure) [code = 097075085] Future Scheduled 2021-06-19 Depression screening [facility] Test 00:00:00 (procedure) [code = Medical Branch 115809841] Future Scheduled 2021-02-11 COVID-19 Vaccination MD Cage Test 00:00:00 (3 - Booster) [code = COVID-19 Vaccination (3 - Booster)] Future Scheduled 2021-02-07 INFLUENZA VACCINE [facility] Test 00:00:00 (Season Ended) [code = Medic al Branch INFLUENZA VACCINE (Season Ended)] Future Scheduled 2018-04-18 Screening for [facility] Test 00:00:00 malignant neoplasm of Medica l Branch cervix (procedure) [code = 282047116] Future Scheduled 2018 Screening for [facility] Test 00:00:00 malignant neoplasm of Medica l Branch lung (procedure) [code = 009229520] Future Scheduled 2017-03-20 Screening for [facility] Test 00:00:00 malignant neoplasm of Medica l Branch breast (procedure) [code = 984658870] Future Scheduled 2013 [facility] blood in feces Medical Branc h (procedure) [code = 352501999] Future Scheduled 2013 Stool DNA-based [facility] Test 00:00:00 colorectal cancer Medical Br anch screening (procedure) [code = 555594365567067] Future Scheduled 2013 Flexible fiberoptic [facility]00 sigmoidoscopy Medical Branch (procedure) [code = 92537803] Future Scheduled 2013 Zoster Recombinant [facility] Test 00:00:00 Vaccine (SHINGRIX) (1 Medica l Branch of 2) [code = Zoster Recombinant Vaccine (SHINGRIX) (1 of 2)] Future Scheduled 1982 DTaP,Tdap,and Td Univers ity of [place] Test 00:00:00 Vaccines (1 - Tdap) Medical Branch [code = DTaP,Tdap,and Td Vaccines (1 - Tdap)] Future Scheduled 1981 Hepatitis C [facility]00 (procedure) [code = Medical Branch [id number]] Future Scheduled 1979 SARS-CoV-2 (COVID-19) [facility]00 Vaccine (1) [code = Medical Branch SARS-CoV-2 (COVID-19) Vaccine (1)] Encounters Start End Encounter Admission Attending Care Care Encounter Source Date/Time Date/Time Type Type Clinicians Facility Department ID 2021-07-04 Outpatient Laird, STLMLC [facility] [id number] Common 13:06:22 Kevan [address] [facility] 2021-07-04 Outpatient Laird, STLC [facility] [id number] Common 12:38:55 Kevan [id number] [facility] 2021-07-04 [facility] [id number] Common 12:37:27 Kevan [id number] [facility] 2021-07-04 Outpatient Laird, STLC [facility] [id number] Common 12:29:32 Kevan [id number] [facility] 2021-08-28 2021-08-28 amb[facility] [id number] Common 00:00:00 00:00:00 [facility] 2021-08-07 2021-08-07 Steve Noe [facility] [id number] Univers 00:00:00 00:00:00 [facility] [id number] it y of [place] [id number] Mike as SERA [phone] Ca ignacio [facility] 044 Branch OFFICE BUILDING ONE 2021-07-18 2021-07-18 ambulatory STLC [facility] [id number] Common 00:00:00 00:00:00 [facility] 2021-07-08 2021-07-08 [facility] [id number] Univers 00:00:00 00:00:00 [facility] [id number] it y of [place] [id number] Mike as PROFESSIO [phone] Ca dical NAL 044 [facility] ONE 2021-06-07 2021-06-07 [facility] [id number] Univers 00:00:00 00:00:00 [facility] [id number] it y of [place] [id number] Mike as PROFESSIO [phone] Ca dical NAL 044 [facility] ONE 2021-05-08 2021-05-08 [facility] [id number] Univers 00:00:00 00:00:00 [facility] [id number] it y of [place] [id number] Mike as PROFESSIO [phone] Ca dical NAL [address] [place] [address] ONE 2021-04-23 2021-04-23 Outpatient ERUM RICHARD MDA Sree/Hep/Nu [id number] 10:05:00 12:50:00 manjit MORRISON 2021-04-20 2021-04-20 Outpatient NADIYA LEON MDA MDA [id number] 10:32:02 10:47:12 Artis sanabria 2021-04-19 2021-04-19 Outpatient ERUM CHRISTY WAQAS MDA [id number] 12:31:01 12:31:01 CAIN sanabria 2021-04-19 2021-04-19 Outpatient ERUM CHRISTY MDA MDA [id number] 12:13:09 12:13:34 CAIN sanabria 2021-03-21 2021-03-21 Outpatient STLMLC STLMLC [id number] Common 00:00:00 00:00:00 [facility] 2021-02-08 2021-02-08 Outpatient ERUM RICHARD MDA MDA [id number] 09:59:47 10:17:53 Artis MORRISON 2021-02-07 2021-02-07 [facility] [id number] Univers 00:00:00 00:00:00 [facility] [id number] [facility] [place] [id number] Mike as Professio [phone] Ca dical nal 044 [place] Office [facility] One 2020-12-20 2020-12-20 Outpatient STLMLC STLC [id number] Common 00:00:00 00:00:00 [facility] 2020-10-13 2020-10-13 [facility] 1.2.840.114 [id number] 00:00:00 00:00:00 [facility] [id number] [facility] [id number] Professio [phone] nal 044 [facility] One 2020-09-26 2020-09-26 Outpatient NADIYA LEON MDA MDA [id number] 08:25:18 08:25:18 Artis sanabria 2020-09-25 2020-09-25 Outpatient NADIYA LEON MDA MDA [id number] 13:27:00 13:27:00 Artis sanabria 2020-09-25 2020-09-25 Outpatient NADIYA LEON MDA MDA [id number] 11:46:15 11:46:15 Artis sanabria 2020-09-19 2020-09-19 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 [facility] [id number] 13:52:17 14:52:17 Visit [facility] [id number] [place] [id number] Professio [phone] 2020-09-19 2020-09-19 Outpatient R CYDNEY [facility] [id number] Univers 14:00:00 14:00:00 MARBELLA [facility] [place] [facility] 2020-09-19 2020-09-19 Outpatient R CYDNEY [facility] [id number] Univers 08:00:00 08:00:00 MARBELLA [id number] [facility] [place] [facility] 2020-09-19 2020-09-19 Outpatient R CYDNEY [facility] [id number] Univers 08:00:00 08:00:00 MARBELLA farmer of [facility] 2020-09-13 2020-09-13 [facility] 1.2.840.114 [id number] 00:00:00 00:00:00 [facility] [id number] [place] [id number] Professio [phone] nal 044 Office [facility] One 2020-08-19 2020-08-19 Patient [facility] 1.2.840.114 [id number] 00:00:00 00:00:00 Outreach [facility] [id number] [facility] [id number] PAVILLION [id number] 388 2020-08-16 2020-08-16 Outpatient STLMLC STLMLC [id number] Common 00:00:00 00:00:00 [facility] 2020-08-14 2020-08-14 [facility] [id number] 00:00:00 00:00:00 [facility] [id number] [place] [id number] Professio [phone] nal 044 [facility] One 2020-08-11 2020-08-11 Outpatient STLMLC STLMLC [id number] Common 00:00:00 00:00:00 [facility] 2020-07-17 2020-07-17 Outpatient STLMLC STLMLC [id number] Common 00:00:00 00:00:00 [facility] 2020-06-19 2020-06-19 Office [facility] [id number] 14:56:13 15:11:13 Visit [facility] [id number] [place] [id number] Professio [phone] nal 044 Office [facility] One 2020-06-19 2020-06-19 Outpatient R HASMUKH [facility] [id number] Univers 15:00:00 15:00:00 NICOLAS [id number] ity [facility] 2020-06-19 2020-06-19 Outpatient R HASMUKH, [facility] [id number] Univers 15:00:00 15:00:00 NICOLAS ity [facility] 2020-06-15 2020-06-15 Outpatient R DOLLY, [facility] [id number] Univers 15:00:00 15:00:00 ANA [id number] ity [facility] 2020-06-15 2020-06-15 Outpatient R DOLLY, [facility] [id number] Univers 15:00:00 15:00:00 ANA [facility] 2020-05-18 2020-05-18 Outpatient R [facility] [id number] Univers 10:20:00 10:20:00 [facility] 2020-05-18 2020-05-18 Outpatient R TANYA, [facility] [id number] Univers 10:20:00 10:20:00 ODELL [facility] 2020-03-21 2020-03-21 Outpatient R CYDNEY, [facility] [id number] Univers 10:00:00 10:00:00 MARBELLA [id number] [facility] 2020-03-21 2020-03-21 Outpatient R CYDNEY, [facility] [id number] Univers 10:00:00 10:00:00 AMRBELLA [facility] 2019-12-21 2019-12-21 Outpatient R ANANYAANNELIESE, [facility] [id number] Univers 11:30:00 11:30:00 [facility]OLAS [id number] [facility]-12-21 2019-12-21 Outpatient R HASMUKH [facility] [id number] Univers 00:00:00 00:00:00 NICOLAS [facility] 2019-12-14 2019-12-14 Outpatient R ANANYAANNELIESE, [facility] [id number] Univers 10:30:00 10:30:00 NICOLAS [facility] 2019-12-14 2019-12-14 Outpatient R HASMUKH, [facility] [id number] Univers 10:30:00 10:30:00 NICOLAS [facility] 2019-12-07 2019-12-07 [facility] [id number] Univers 11:30:00 11:30:00 NICOLAS [facility] 2019-12-07 2019-12-07 Outpatient R HASMUKH [facility] [id number] Univers 11:30:00 11:30:00 NICOLAS [facility] 2019-12-02 2019-12-02 Outpatient CYDNEY [facility] [id number] Univers 14:00:00 14:00:00 MARBELLA [id number] [facility] 2019-12-02 2019-12-02 Outpatient R CYDNEY [facility] [id number] Univers 14:00:00 14:00:00 MARBELLA [facility] 2019-10-28 2019-10-28 Outpatient R [facility] [id number] Univers 15:40:00 15:40:00 [id number] [facility] 2019-10-28 2019-10-28 Outpatient R [facility] [id number] Univers 15:40:00 15:40:00 [facility] Results Test Description Test Time Test Comments Results Result Comments [facility] Biopsy Interpretation 2021-04-26 20:21:50 Test Item Value Reference Range Interpretation Comme nts Submitted u7lqzYAkVWAva5qsEMSirUByKcMkHeJkMnKoSrituSQdSRseysRmWPczv0WrX8HiCcRtBNpkmwDuAHYq IcqvnyidYQUtJMT5muWeMQApPAwfWZRvZCxoAn6vmWLycLzoWyUtVIGwr5wqncWSunaqaOy3s3rkHARd BjO3lBJuTCsvI7rkjcGhzRFnTUFcBPs2lV31CBMx nF0onNJfBIkccyQtDlS6LXzsTUOnInH1GPXssSXtUGDsA Clinical 5ysPUDfEKpfJNLfUZfipVKpBET5tSyfm3Q4aZNjzXEuyLkkSfRlPeObNyRNt6PtJBw4zPijI3UxWBLiQ dI8eQTxSTOeQUjoNCRqAETbmcD4jV12CWfvdoV8fPBap7Xiy92zr054bT1cySUeXPX7CYCeHJArxQIcC SDfQYI3FXRwpOMlT2zvFBQtEE9jadetMCilBRrlK ESmpOU7GCOrzMYlK5UwJGIpESteXDIfaks5RtFgXg2shD History XxiBivZJpas7jwr6iylJMuIth7RIMcQnIfTvtnMMzzv7Ang9aqPCQwyw4bUKX3eYZlrBrzf1K3uQWwLS RocSNivnCgGSHkNwN8SClzGE1vqi95WJNhMID4mw4jfYPgeFpsviUymPBsXCbwW0QbJANik161KZJaT8 FrSNZau7Z3rtPjAiTcZEEecDI6onR7BFJbRSd2iZ BmtnT5zvQzkWLpT0gtpC1dTZSnLD2nawrcu2fgCXjqXHo (test code uPYNvyAO6svA0VIAjlFYmY1CveV8pUDKeHPloVCXprnl9UrJjKt3kgPUowOrhBRryRxbcWEhbCVRqzkG mhiRuqUtnOSUpZQNbCPfzCVMhVFlmIOCuQSTxNiZtbDkvnXpbzX9yOkFhIuKcKWpbUV9wVLUxX1dbdNN nHNMdZHYmC9veQkWvuH0dlVphQFebmtIfKYNfIX6 pvVZ2u6KeBTLgjVxvRM3sMCKdfM6gRQyHVTSyFe7ktInt = 84726) vN6pYmEvZhIfCifoHE4uZCUhO8oagXRjUVZaZHTdH5bkVrGgrG6nyEzrOGzgqhFjTXSyqc00 Diagnosis k0oiiZGgHNEauRG3AfGvHBVui1qpr2YowCMltDIwLJgfoSEltiLadn84eCH8iF79ON6pSAHwIdA8UTZs kcI1Fvh1MMYfNDQmjYGzE276u4gic3eifiFzzNB9aIjqYJDufqxyOsB6BBtuRDCbfcruAQo8CRwcSPFj vDD2SEOdeUKzW2ByFTKsHN4ipdf7KVW3VAquDLRu NuP8HKQedOGoEKBtdLamDJxsd940DRT1TiFrQGUbhxPmu (test code OhhfK2vBoUaWYOOXxSSh1phmatpVGFrM7VqBBcdPargeE3iuTGwCEOhx6KbbKckdOWiPUFaSuNLxPYpx hSmWAQ0cGOsfS3jzYHoYWCpnx8= = 32) Gross j8fqoYHiNHUhaTOHJCxlJXkxrzAmVZGnsGRuN6JxqtjbAOqbGO4nWD8tvZknjKXagFAdVV1XZWDePuDv QUKvnWDiluObGfJrFPHcsSTfbBC6LCBqQW4qyrjpWVoqWPwiCZMtbxV5UZRbxOAmA8AmGTWbCX8yixbh YJT1CTflxT7zqvXSRvftBv6fwKJhnRusSrYxIrLq UXLmDFJcDNWmfHwxETLyTWu2kW9NPodcX63ey6U4Aqp5J Descriptio VOcYVJcY4BvRL3gOCLvjGKgP19MErliVEU6EDQSTasrFAAhYG6Yg7tlSOKjfUAvHAF6CWlqxUKiNIEjD ECsEQy9NSEdBTqzcLRpTC1oxFufTsgfxUzpe0VttVAoJUfpSQYuMQGlYEpyJLQiQL7YVmPqLOMgFEq4T vPnTAo0TFl4DU5YHmYeKOZlAWb4MQv7XMAfNMu8F WhhNU2YCYs1HLc1FeG7UIQ7HPC0YtQaBALrGnOgBOSfGS n (test HgBZysGGlfqaZtVLVrTHPvTYrxUapeJHwpB48ppHgpyM0yKqsaqlWpTMG1IZBoplANNqqusCIxzxjrkJ grAnJnuQRgDhUcAIbbeKTgxDGwWCweyqCiwzyoXLBFYisyrLBlpVadAPFlSPxwlkKwSUTrj2lpmwijTK 3vGEWnN4UpUDguMoVvb7vhrsTbi9t5eFyqJfSfX3 MsLMHpZ5XyAAQdqaSpj6TvVF6iYXYjjYHlUE02EG4bo9g code = tJ8h3lSepvR6tsJUdxDBlVtGbX06gvuVaq8TsoDjes5HxUV8yFEZ3mvjvZeYuVpMiO94siT2zW5FhPWF mf7FoTWsyDN5gpO9rKKLeSWOuUHAhaGqfFCg2RLS5Gz1anWJoFNSskdRVZW0pAQncow30SNC3m1qrmNB zBTumYplhpGYskmH1KElXFNHZPApGNlFhQT6lRLz QTpdHFJlJGzdgEJAgRkyutBKGNJW4AQteeDvsvHx2a6bd 0185708227 iTNwt1k3PIbjVRN9cCFKr8mcyIReTLmwJdepfLHcqrI8RSsXWGYZSLjYFoInHV2eSWwOSirVOkD5SlMx HBJ0EHwQS6BLbXF9Uxa9QLd1eBrcWlwpkyGonRXoLiEGhO6oxOqwmB9hyPOyO3awNfUnNQMFTvjyfOtx KkCgsANhHrSixgQ2JAEcsRCqZXH3CG6eAIVuxrsz DHSvOVAxYLP9KUgfdB85jHHiREXeZBNwnRGtqMbbtAWow ) iGHZdaswO7zPfWyl8pkdHw3EBFXBagvwMStimhqhpG3NWXmx6sikOjlm5HxpXSiPH6vnMroqM7sTcKiE iANCn0= Biomarker d7rvrWYwXLCzqTM2PxCiVQZnz1lji3IeuCPkgFJnPHustJCgwzWnru31tQJ1oF83AM6fEULzIdV4CWXj toV9Wdd6ISFnPDBduMIcI993v4gbn4llalHcyIS4aYrjGQXqdnxgOoP8QCjrBPAoestkQKi2RRxuCZHd tSY7CBBacUQrG0XwOLJjVW8szuc8OEH9EGgmIEDt AcU9FKZcjYSqZLDfjUfbNWunm950GKL3TlSnXKUralXmq Block(s) TqqwK1jDjWyESMGK3GapNEkcK== (test code = 9841) Disclaimer c6tqnHDvALZghZNpCpAoCPBgQSZuc9dhIOFkxVUtNrZcXvGxLqMfAfgipPZmPESzAvZqh4skv160xQKv w2ioLUMbDlN0dNXqTSFedBDpD900JRKtMJpwx7fuk9TrTWAssWEus9W9XXRNegydjIv6eHbuQ92nj0C5 DshlS0tvGJNcYZJfI3AqKD9lPKAzAsg9YWA8JTX8 IHLgRAQcR7OiBO1qTHWjmLYzKCt7w5hfxFrzJQSmXBJ4q (test code 4saOVfziyCbJN4ppi6ruYd4n3xvhgYgYQQiYTRpuVVDTOLjX2XozUskXi1tnPp0wHawIqmaPUC1Iyv3E D6eru29jpl7yGnbDPQgcdwbCaR6YWzlRMVaxsabOGo4DFcdLEGlfUT9MDIyoRObP2TkJAKlHJ0ahzr4D BP2RRlmJNQnKyN4FAYoiNSkJNOlhIujTCtgx284A RT6FiJfYT8xM4Bro1Z7oQ3joSFnCRWjzWIsDtZvBVJwpn = 9844) 1qkSYwMDble5AbDNO8ieY8xMPgfBEpPCCdZM79Ikvqj0ShImzvXCK3LTNlgfPte8Bje5qdIlUlmnHgZ1 sfJ2NbQYPiIQRaIVMzRiIxbzIvb0Pvp8ZaaKSfbGe8c4igJDTrVOXpoOvuh3uuWBY6ATJaI5B4zOMld2 hdNTehKVMciLF2kgC5CRWlkMLzL0MepV5mRINmOL 0xcmn8x1ydKOR6GGhgTEHeIfT0xvK8JCOgfZVjBWWtmTn mFAqlh869RDL3NcNeDOAdm5PxP8HueTtnA50bzKuuL27lKVGqcDbxnP3hjIjfoU6gQxPuAtEjLRyowLt kuHCwtipzLCjubkE3WCatxhknYOFbSDfwV2zuGoJeRCWpbQbxCQeiq9NjRZSlNYZkLbxtguX7BMJTf31 qFTYrb2RvOJVaxI0vfLCcFLansoQumHZ8QMjtqtU pLeHiafTlEXPutM4cEVXzPR3kBERtqvCijw2qveYlISHy MUXdH2CbwpaviSdzfsLhHDSjbs3fnhIqQVP1LHHSBB7TBHDcGXEkw64bSEOmcUsxjG7idUBiumKjGQJj k4VfnP4vbTTAYTVpA3lzHV1yXQktk9XueJRckYKiwMK5DOCrr9IgMwVdzzKcuWHcaNMvI7UjiQxjW8rl VTDjJDZtrjKnqVXbs3VwBVEhoXT9dKCoYU3XAuXP e80jTPYtQZWLvmSwPCMiaYzzhZL4waX1eW8tWuTFEqMtt FQxgDNeVhjtHDBzo378xd3egpI6ADPhZHEwedvce6ZaKXFrWIGpcJ83EXZyOHScge4gknkmzPGrpfLyK 9Dnwfn8sJ3uXPGwXTcoSHBeUJEzSdPmiZMeJcDfCyOifLtlhYyiHXwnSvBzRITrTCfyW0mtTuLlJhNbR lxwYXJ9 MD CageCOVID-19 (SARS-CoV-2) PCR-Asymptomatic [place]2004-08-77 02:04:32 Test Item Value Reference Range Interpretation Comments COVID19 (SARS Not Detected Not Detected CoV-2) Result (test code = ____This test i s a 56269-3) qualitative reverse-transcr iptase polymerase gonzales n reaction (RT-PC R) developed for t he My[employer] CAMI 680 0 system and inte nded for qualitative detection of SA RS CoV-2 RNA in nasopharyngeal and oropharyngeal s wab specimens colle cted from any indivi duals, including those suspected of CO VID-19 by their health care provider, and t hose without symptom s or other reasons t o suspect COVID-1 9. A fact sheet for patients provid ed by the manufacture r ([employer]) c an be reviewed at:https://www. fda.go v/media/205384/ downlo ad. A fact shee t for Health Care pro viders is provided by the brine tank separator operator ([employer]) and can be reviewed at: https://www.fda .gov/m edia/229956/craig nload Results must be interpreted wit hin the context of all relevant clinic al and laboratory find ings and should not form the sole basis for a diagnosis or treatment decis ion. Positive result s do not rule out bacterial infec tion or co-infection with other viruses. Negative result s do not rule out SARS-CoV-2 and must be combined wit h clinical observations, p atient history, and/or epidemiological information. "Presumptive Positive" resul ts are due to partial amplification o f SARS-CoV-2 targ ets and indicates l ow amounts of viru s present in the specimen at or near the limit of detection. Regardless, individuals wit h "Presumptive Positive" resul ts should be manag ed per institutional guidelines as individuals pos itive for SARS-CoV-2 virus, including use o f appropriate inf ection control protoco ls. Internal contro ls are included to ass ess for possible amplification inhibitors. If inhibition is detected, testi ng is repeated and if inhibition is confirmed the specimen is res ulted as "Invalid". W hen an "Invalid" resul t occurs, it is recommended to wait 3 days before submitting a ne w specimen for te sting if clinically indicated. Thi s assay has been approved by the FDA for use only un kp Emergency Use Authorization ( EUA) in laboratories that have been CLIA-certified to perform moderate-comple xity and high-comple xity tests. The performance characteristics of this assay were verified by the Microbiology Laboratory at [facility], CLIA Accreditation # : [id number] and CAP Accreditation # : [id number]. COVID19 SARS COUNTERINTELLIGENCE ANALYST Swab Source (test code = 63608) COVID19 SARS Pre-Out of OR Indication (test Procedure code = 98920) MD Cage
--- NOTE | 2021-10-30 19:39 | RAD REPORT ---
EXAM DESCRIPTION: CT - Head Brain Wo Cont - 10/30/2021 7:32 pm CLINICAL HISTORY: Neuro deficit, acute, stroke suspected COMPARISON: No comparisons TECHNIQUE: Axial 5 mm thick images of the head were obtained without IV contrast. All CT scans are performed using dose optimization technique as appropriate and may include automated exposure control or mA/KV adjustment according to patient size. FINDINGS: No intracranial hemorrhage, mass, edema or shift of mid-line structures. No acute infarcti on changes seen. No abnormal extra-axial fluid collections. Ventricles are normal. Mastoid air cells and visualized portions of the paranasal sinuses are clear. No acute bony findings. IMPRESSION: Negative non-contrast CT head examination.
[2021-10-30 23:18] LABS: Potassium 3.7 mmol/L (3.5-5.1); Troponin High Sensitivity 6.5 pg/mL (<58.9)
[2021-10-31 01:11] LABS: Absolute Lymphocytes (CBC) 3.4 K/uL (0.7-4.9); Hematocrit 42.6 % (36.0-45.0); Lymphocytes % 52.5 % (15.3-44.8); MPV 7.7 fL (7.6-11.3); RBC Red Blood Cell Count 4.82 M/uL (3.86-4.86)
--- NOTE | 2021-10-31 01:37 | ER ---
Nurse's Notes [facility] Name: Akosua Ludwig Age: 56 yrs Sex: Female : 1965 Arrival Date: 10/30/2021 Time: 17:37 Bed 20 Private MD: Diagnosis: Unspecified symptoms and signs involving the musculoskeletal system-Right sided Presentation: 10/30 18:08 Chief complaint: Patient states: "I started with pain to the right side of my face and aa5 then it spread to my right arm and right leg that started last night at 10:30pm". Denies numbness or tingling. Pt still c/o to right side of body and described as soreness. Pt denies any other symptoms. Coronavirus screen: At this time, the client does not indicate any symptoms associated with coronavirus-19. Ebola Screen: No symptoms or risks identified at this time. Initial Sepsis Screen: Does the patient meet any 2 criteria? No. Patient's initial sepsis screen is negative. Does the patient have a suspected source of infection? No. Patient's initial sepsis screen is negative. Risk Assessment: Do you want to hurt yourself or someone else? Patient reports no desire to harm self or others. Onset of symptoms was October 2021. 18:08 Acuity: RAVINDER 3 aa5 18:08 Method Of Arrival: Ambulatory aa5 Triage Assessment: 23:36 General: Appears in no apparent distress. sadia 23:36 General: Behavior is calm, cooperative. sadia 10/31 01:27 Pain: Denies pain. sadia Historical: - Allergies: 10/30 18:08 Aspirin; aa5 18:08 Gluten Protein; aa5 - PMHx: 18:08 Celiac Disease; Kidney stones; Rheumatoid Arthritis; aa5 18:12 Hypertensive disorder; aa5 - PSHx: 18:12 hysterectomy; Tonsillectomy; tubal ligation; 80% of thyroid removed; kidney stone aa5 removed; 18:14 Abdominalplasty with Liposuction; aa5 - Immunization history:: Adult Immunizations unknown. - Social history:: Smoking status: Patient denies any tobacco usage or history of. Screenin:32 Abuse screen: Denies threats or abuse. Denies injuries from another. Nutritional sadia screening: No deficits noted. Tuberculosis screening: No symptoms or risk factors identified. Fall Risk None identified. Assessment: 19:30 Reassessment: Patient appears in no apparent distress at this time. No changes from sadia previously documented assessment. The pt was brought to room #[address] and immediately taken to CT. She has no neuro deficits. Her is at bedside. 19:59 Reassessment: The pt has returned from CT. Awaiting results. She continues to have no sadia neuro deficits. Her remains at bedside. 10/31 00:32 Reassessment: The lab called to say that some of the labs hemolyzed, earlier, so I sadia called and told them that they'd need to draw it. She said they will be here. Vital Signs: 10/30 18:08 BP 149 / 94; Pulse 69; Resp 18 S; Temp 98.2(O); Pulse Ox 100% on R/A; Weight 79.38 kg aa5 (R); Height 5 ft. 0 in. (152.40 cm) (R); 19:31 BP 131 / 78; Pulse 64; Resp 16; Temp 97.6; Pulse Ox 100% on R/A; Pain 0/10; sadia 20:32 BP 133 / 84; Pulse 66; Resp 16; Temp 97.6; Pulse Ox 99% on R/A; Pain 0/10; sadia 22:23 BP 123 / 73; Pulse 63; Resp 16; Temp 97.6; Pulse Ox 100% on R/A; Pain 0/10; sadia 23:35 BP 114 / 73; Pulse 61; Resp 16; Temp 97.6; Pulse Ox 100% on R/A; sadia 10/31 01:26 BP 126 / 73; Pulse 62; Resp 18; Temp 97.6; Pulse Ox 100% on R/A; sadia 10/30 18:08 Body Mass Index 34.18 (79.38 kg, 152.40 cm) aa5 ED Course: 10/30 17:37 Patient arrived in ED. rg4 18:08 Arm band placed on. aa5 18:12 Triage completed. aa5 19:30 Bekah Ann, RN is Primary Nurse. sadia 19:31 Rich Romero MD is Attending Physician. kdr 19:33 CT Head Brain wo Cont In Process Unspecified. EDMS 22:40 Inserted saline lock: 20 gauge in left forearm, using aseptic technique. Blood oe collected. 22:46 Basic Metabolic Panel Sent. sadia 22:46 CBC with Diff Sent. sadia 22:46 Troponin HS Sent. sadia 23:36 No provider procedures requiring assistance completed. sadia 10/31 01:27 Bed in low position. Call light in reach. Side rails up X 1. Adult w/ patient. sadia 01:48 intact, bleeding controlled, No redness/swelling at site. Pressure dressing applied. sadia Administered Medications: No medications were administered Medication: : VIS not applicable for this client. sadia Outcome: :27 Condition: stable sadia 01:36 Discharge ordered by . kdr 01:48 Discharged to home ambulatory, with family. sadia 01:48 Discharge instructions given to patient, Instructed on discharge instructions, follow up and referral plans. medication usage, Demonstrated understanding of instructions, follow-up care, medications, Prescriptions given X 1. 01:49 Patient left the ED. sadia Signatures: Dispatcher [employer] EDMS Rich Romero MD MD [facility] Lizzie Angulo RN RN [id number] Kamini Ghosh 4 Emery Reynolds Brenda, RN RN sadia Corrections: (The following items were deleted from the chart) 10/30 18:21 18:08 Chief complaint: Patient states: "I started with pain to the right side of my aa5 face and then it spread to my right arm and right leg". Denies numbness or tingling. Pt still c/o to right side of body and described as soreness. Pt denies any other symptoms. aa5
--- NOTE | 2021-10-31 01:37 | EDPHYS ---
Physician Documentation [facility] Name: Akosua Ludwig Age: 56 yrs Sex: Female : 1965 Arrival Date: 10/30/2021 Time: 17:37 Bed 20 Private MD: ED Physician Rich Romero HPI: 10/31 09:16 This 56 yrs old Black Female presents to ER via Ambulatory with complaints of Right kdr Sided Pain. 09:16 Patient states that she started with pain to the right side of her head and forehead. kdr It subsequently spread down her right arm and leg. This started last night around 1030. It has subsequently resolved.. Onset: The symptoms/episode began/occurred yesterday. Severity of symptoms: At their worst the symptoms were mild in the emergency department the symptoms are unchanged. The patient has not experienced similar symptoms in the past. The patient has not recently seen a physician. Historical: - Allergies: 10/30 18:08 Aspirin; aa5 18:08 Gluten Protein; aa5 - PMHx: 18:08 Celiac Disease; Kidney stones; Rheumatoid Arthritis; aa5 18:12 Hypertensive disorder; aa5 - PSHx: 18:12 hysterectomy; Tonsillectomy; tubal ligation; 80% of thyroid removed; kidney stone aa5 removed; 18:14 Abdominalplasty with Liposuction; aa5 - Immunization history:: Adult Immunizations unknown. - Social history:: Smoking status: Patient denies any tobacco usage or history of. ROS: 10/31 09:24 Constitutional: Negative for fever, chills, and weight loss, Eyes: Negative for injury, kdr pain, redness, and discharge, ENT: Negative for injury, pain, and discharge, Neck: Negative for injury, pain, and swelling, Cardiovascular: Negative for chest pain, palpitations, and edema, Respiratory: Negative for shortness of breath, cough, wheezing, and pleuritic chest pain, Abdomen/GI: Negative for abdominal pain, nausea, vomiting, diarrhea, and constipation, Back: Negative for injury and pain, : Negative for injury, bleeding, discharge, and swelling, MS/Extremity: Negative for injury and deformity, Skin: Negative for injury, rash, and discoloration, Psych: Negative for depression, anxiety, suicide ideation, homicidal ideation, and hallucinations, Allergy/Immunology: Negative for hives, rash, and allergies, Endocrine: Negative for neck swelling, polydipsia, polyuria, polyphagia, and marked weight changes, Hematologic/Lymphatic: Negative for swollen nodes, abnormal bleeding, and unusual bruising. Neuro: Positive for headache, visual changes, weakness, Negative for altered mental status, dizziness, tinnitus, tremor. Exam: 09:24 Constitutional: This is a well developed, well nourished patient who is awake, alert, kdr and in no acute distress. Head/Face: Normocephalic, atraumatic. Eyes: Pupils equal round and reactive to light, extra-ocular motions intact. Lids and lashes normal. Conjunctiva and sclera are non-icteric and not injected. Cornea within normal limits. Periorbital areas with no swelling, redness, or edema. Neck: Trachea midline, no thyromegaly or masses palpated, and no cervical lymphadenopathy. Supple, full range of motion without nuchal rigidity, or vertebral point tenderness. No Meningismus. Chest/axilla: Normal chest wall appearance and motion. Nontender with no deformity. No lesions are appreciated. Cardiovascular: Regular rate and rhythm with a normal S1 and S2. No gallops, murmurs, or rubs. Normal PMI, no JVD. No pulse deficits. Respiratory: Lungs have equal breath sounds bilaterally, clear to auscultation and percussion. No rales, rhonchi or wheezes noted. No increased work of breathing, no retractions or nasal flaring. Abdomen/GI: Soft, non-tender, with normal bowel sounds. No distension or tympany. No guarding or rebound. No evidence of tenderness throughout. Back: No spinal tenderness. No costovertebral tenderness. Full range of motion. Skin: Warm, dry with normal turgor. Normal color with no rashes, no lesions, and no evidence of cellulitis. MS/ Extremity: Pulses equal, no cyanosis. Neurovascular intact. Full, normal range of motion. Neuro: Awake and alert, GCS 15, oriented to person, place, time, and situation. Cranial nerves II-XII grossly intact. Motor strength 5/5 in all extremities. Sensory grossly intact. Cerebellar exam normal. Normal gait. Psych: Awake, alert, with orientation to person, place and time. Behavior, mood, and affect are within normal limits. Vital Signs: 10/30 18:08 BP 149 / 94; Pulse 69; Resp 18 S; Temp 98.2(O); Pulse Ox 100% on R/A; Weight 79.38 kg aa5 (R); Height 5 ft. 0 in. (152.40 cm) (R); 19:31 BP 131 / 78; Pulse 64; Resp 16; Temp 97.6; Pulse Ox 100% on R/A; Pain 0/10; sadia 20:32 BP 133 / 84; Pulse 66; Resp 16; Temp 97.6; Pulse Ox 99% on R/A; Pain 0/10; sadia 22:23 BP 123 / 73; Pulse 63; Resp 16; Temp 97.6; Pulse Ox 100% on R/A; Pain 0/10; sadia 23:35 BP 114 / 73; Pulse 61; Resp 16; Temp 97.6; Pulse Ox 100% on R/A; sadia 10/31 01:26 BP 126 / 73; Pulse 62; Resp 18; Temp 97.6; Pulse Ox 100% on R/A; sadia 10/30 18:08 Body Mass Index 34.18 (79.38 kg, 152.40 cm) aa5 MDM: 01:36 Patient medically screened. kdr 09:24 Data reviewed: vital signs, nurses notes, lab test result(s), radiologic studies. kdr Counseling: I had a detailed discussion with the patient and/or guardian regarding: the historical points, exam findings, and any diagnostic results supporting the discharge/admit diagnosis, the presence of at least one elevated blood pressure reading (>120/80) during this emergency department visit, lab results, radiology results. 10/30 21:07 Order name: Basic Metabolic Panel; Complete Time: 23:43 kdr 10/30 21:07 Order name: CBC with Diff kdr 10/30 18:13 Order name: CT Head Brain wo Cont; Complete Time: 21:43 rn 10/30 21:07 Order name: Troponin HS; Complete Time: 23:43 kdr 10/30 21:07 Order name: EKG; Complete Time: 21:08 kdr 10/31 01:16 Order name: Manual Differential EDMS 10/30 21:07 Order name: EKG - Nurse/Tech; Complete Time: 22:46 kdr 10/30 21:07 Order name: IV Saline Lock; Complete Time: 22:46 kdr 05/24 21:07 Order name: Labs collected and sent; Complete Time: :46 kdr Administered Medications: No medications were administered Disposition Summary: 10/31/21 01:36 Discharge Ordered Location: Home kdr Problem: new kdr Symptoms: have improved kdr Condition: Stable kdr Diagnosis - Unspecified symptoms and signs involving the musculoskeletal system - Right sided kdr Followup: kdr - With: Private Physician - When: 2 - 3 days - Reason: If symptoms return, Further diagnostic work-up, Recheck today's complaints, Continuance of care, Re-evaluation by your physician Discharge Instructions: - Discharge Summary Sheet kdr - Musculoskeletal Pain kdr Forms: - Medication Reconciliation Form kdr - Thank You Letter kdr Prescriptions: - Ibuprofen 600 mg Oral Tablet - take 1 tablet by ORAL route every 6 hours As needed take with food; 15 tablet; kdr Refills: 0, Product Selection Permitted Signatures: Dispatcher [employer] Rich Pakr MD MD kdr Lizzie Angulo, RN RN aa5
[2021-10-31 01:41] LABS: Blood Morphology Comment NOT SEEN (NOT SEEN); Platelet Estimate ADEQ
[2021-10-31 01:55] VITALS: TEMP 97.6
[2021-10-31 01:59] VITALS: O2SAT 100
[2021-10-31 02:02] VITALS: BP 126/73
--- NOTE | 2021-10-31 12:33 | EKG ---
Test Date: 2021-10-30 Test Time: 22:39:14 Office Clinician: MEASUREMENT RESULTS: Intervals: Rate: 61 MN: 164 QRSD: 84 QT: 418 QTc: 420 [place]: P: 57 MN: 164 QRS: 12 T: 33 INTERPRETIVE STATEMENTS: Normal sinus rhythm Normal ECG Compared to ECG 06/06/2020 05:33:49 No significant changes Electronically Signed On 10-31-21 12:31:34 CDT by Juan A Trinh
== END 2021-10-31 01:49 | disposition home or self-care (01) ==
LOC: ER 17:35
DX: R29.91 Unspecified symptoms and signs involving the musculoskeletal system (principal); I10 Essential (primary) hypertension; Z91.02 Food additives allergy status
CPT/HCPCS: 36415; 70450; 80048; 84484; 85025; 93005; 99284